=== PATIENT | male | born 1950 | race Caucasian/White ===

== ENCOUNTER 2019-06-20 09:07 | Observation (INO) | payer OTHER, SELFPAY ==
[2019-06-20] VITALS (16 sets, daily range): BP systolic 135–159; BP diastolic 83–117; PULSE 67–143; RESP 16–25; TEMP 36.4–36.6; O2SAT 98–100; BMI 28.7; BMI 28.3
--- NOTE | 2019-06-20 09:15 | RAD_ITS ---
STUDY: X-RAY CHEST REASON FOR EXAM: Male, 69 years old. CHEST PAIN STARTED THIS MORNING. TECHNIQUE: Single AP portable view of the chest. COMPARISON: None. FINDINGS: EKG electrodes are seen. The lungs are clear and expanded. Scattered calcified granulomas. There is no demonstrated pleural abnormality. Normal size heart. Normal mediastinum and olvin. Normal visualized pulmonary arteries. There is atherosclerotic calcification of the aortic arch with tortuosity. There are degenerative changes of the visualized thoracic spine. Normal visualized ribs, clavicles, and shoulders. There is no demonstrated abnormality of the visualized soft tissue structures of the upper abdomen. RAD/Chest 1 View (Portable) IMPRESSION: The lungs are clear. Electronically Signed: Lawrence Marks, at 9:35 EST , Service support ,
--- NOTE | 2019-06-20 09:15 | EKG12_ITS ---
Test Reason : CP Blood Pressure : / mmHG Vent. Rate : 127 BPM Atrial Rate : 357 BPM P-R Int : 000 ms QRS Dur : 072 ms QT Int : 312 ms P-R-T Axes : 000 044 029 degrees QTc Int : 453 ms Atrial fibrillation with rapid ventricular response with premature ventricular or aberrantly conducte d complexes Abnormal ECG Confirmed by AURELIA RIZO, ALEX ([id number]), editor school photograph RICHARD NORTH ([id number]) on 06/23/2019 3:21:27 PM Referred By: JOSHUA Confirmed By:ALEX MOSES MD
--- NOTE | 2019-06-20 09:23 | ED.VISSUMM ---
- ER Visit Summary Date of Service: 06/20/19 Chief Complaint: Chest pain History of Present Illness: The patient is a 69 M past medical history of some depression. No other significant medical problems or surgeries. Patient states in the last year he has had for 5 episodes of squeezing chest pain. Again had it this morning. Midsternal without radiation. Sitting normally can drink some water it resolves it did not today. Said often it will occur in the morning. He denies exertional chest pain but said he has had exertional dyspnea and exertional fatigue. He is never had a DVT or PE. No leg pain or swelling. No hemoptysis. He is never had a cardiac work-up and has not been hospitalized for a very long period of time. Physical Examination: Older male no acute distress. Vital signs are stable. H EENT exam unremarkable. Neck nontender. Lungs clear to auscultation bilaterally. Heart tachycardic rate about 127 appears to be irregular with PVCs. Abdomen soft and nontender. Normal bowel sounds no peritoneal signs. He is moving all 4 extremities. Calves are nontender without edema or cords. Equal symmetrical radial pulses. 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 Normal dorsi plantarflexion. Both upper and lower extremities have normal motor strength and sensation. Neurologically is awake and alert with no focal motor or sensory deficits. No facial droop. Normal speech. Test Results: Portable 1 view read by myself and radiologist shows no acute abnormality. Normal cardiac silhouette. EKG sinus rhythm rate of 127 consistent with sinus tachycardia with PVCs. The computer is reading there is a fair there is clear P waves throughout most of the EKG. There is an area where the P waves seem to drop off in lead V3. 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 CBC normal. White count of 6. Hemoglobin 16. Chemistries unremarkable BUN of 11 creatinine 1.2. Troponin normal. Emergency Department Course and Treatment: Patient with intermittent chest pain for a year. Chest pain this morning. Undergo a cardiac work up. Given p.o. aspirin. Treatment Plan: Exam patient is doing well. Symptom-free. He and I discussed his exertional fatigue and dyspnea times in the last several months. And need for further evaluation and admission. I also spoke to the hospitalist about admission Disposition: Admission Impression: Acute chest pain uncertain etiology. This note was generated with Dragon dictation software. It may contain incorrect words, spelling, and punctuation that were not noted in review of the chart prior to signing ED Disposition - Plan for ED Patient: Referrals: Franklyn Lew MD [Primary Care Provider] -
--- NOTE | 2019-06-20 09:29 | NURSING ---
NO OLD EKGS
[2019-06-20 09:38] LABS: Absolute Lymphocyte Count 1.23 X10^3/uL (0.83-4.51); Absolute Neutrophil Count 4.4 X10^3/uL (2.0-7.7); Basophil# 0.02 X10^3/uL; Basophil% 0.3 % (0-1); Eosinophil# 0.09 X10^3/uL; Eosinophils% 1.4 % (0-5); Hematocrit 48.1 % (40-54); Hemoglobin 16.3 g/dL (13.0-16.5); Lymphocyte # 1.23 X10^3/ul (4.0); Mean Corp Hgb Conc 33.9 g/dL (32-36); Mean Corpuscular Hgb 33.2 pg (27.0-32.0); Mean Platelet Vol. 10.1 fl (6.2-12.0); Monocyte# 0.74 X10^3/uL; Monocyte% 11.4 % (0-10); NRBC Flagged by Analyzer 0 % (0-5); Neutrophil # 4.39 X10^3/uL (2.7-7.7); Neutrophil % 67.6 % (47-70); Platelet Count 226 K/mm3 (150-450); RBC Distribution Width CV 12.4 % (11.6-14.6); RBC Distribution Width SD 44.7 fl (35.1-43.9); Red Blood Count 4.91 M/mm3 (4.6-6.2); White Blood Count 6.5 K/mm3 (4.4-11.0)
[2019-06-20 09:49] LABS: Anion Gap 7 (5-15); BUN 11 mg/dL (7-18); BUN/Creat Ratio 9.1 RATIO (10-20); Calcium,Total 9.5 mg/dL (8.5-10.1); Chloride 104 mmol/L (98-107); Creatinine, Serum 1.21 mg/dL (0.70-1.30); EST Glomerular Filtration Rate 63 mL/min (>60); Est Glom Filt Rate - Afr Amer 77 mL/min (>60); Estimated Creatinine Clearance 60.33 ml/min; Glucose 120 mg/dL (74-106); Potassium 4.1 mmol/L (3.5-5.1); Sodium Level 137 mmol/L (136-145)
[2019-06-20] MEDS: Aspirin 325 MG Tablet PO (10:22)
--- NOTE | 2019-06-20 10:30 | HP.PCM_ITS ---
History of Present Illness Date of Admission: 06/20/19 Chief Complaint: chest pain The patient is a 69 year old M with a past medical history significant for depression. He was admitted through the ED on 06/20/2019 with a complaint of chest pain. Chest pain has been going on episodically for about a year and he states it is retrosternal, cramping in nature with no aggravating or relieving factors. He initially thought it was due to reflux and said he used to be relieved by drinking water. However on waking up this morning he had similar chest pain which was not relieved by drinking water at this time. He also had associated dizziness and numbness in his left upper extremity. He denied any fever or chills, and admitted to occasional palpitations, he also admitted to nausea but no vomiting. He denied any abdominal pain or diarrhea. He therefore decided to come into the ED to be checked out. Patient states when he has routine health screenings at work, he is usually noted to have an elevated blood pressure but when he follows up with his PCP, his blood pressure is usually normal so he has not been on any blood pressure medications. He has a brother who has A. fib which was treated with ablation. On admission in the ED, vitals were significant for blood pressure 159/103 per pulse rate was 95 and respiratory was 18. Temperature was 97.8. He was saturating at 99% on 2 L of oxygen. Chemistry was essentially unremarkable initial troponin was negative. CBC was also unremarkable. Chest x-ray showed no acute cardiopulmonary process. EKG done in the ED was read as A. fib with RVR as heart rate was around 127. However, ED doctor felt that there was some P waves present. I reviewed EKG myself and also show some questionable P waves. He has been admitted to be managed for chest pain rule out ACS. During review however he was noted to be in A. fib and he also be managed for new onset A. fib. [] Past Medical History Allergies No Known Allergies Allergy (Verified 06/20/19 09:08) Home Medications: Ambulatory Orders Medication Instructions Recorded Fluoxetine [Prozac] 20 mg PO DAILY 06/20/19 Surgical History: - - foot surgery 40 years ago Psychiatric History: Depression Lives: Alone Smoking Status: Never smoker Alcohol: Heavy - drinks one bottle of wine daily Drugs: None - *Family History Maternal History Items: Heart Disease, - - alzheimer's disease Paternal History Items: No pertinent history Sibling History Items: Heart Disease - brother has Afib Review of Systems Constitutional: Denies: Chills, Fever, Night Sweats, Weight Change Eyes: Denies: Blurred vision HEENT: Denies: Head Aches, Sinus Congestion, Sinus Drainage Cardiovascular: Reports: Chest Pain, Chest Pressure, Light Headedness, Palpitations. Denies: Chest Tightness, Edema, Heaviness, Orthopnea, Paroxysmal Noc. Dyspnea, Syncope Respiratory: Reports: Shortness of Breath, Shortness of breath upon exertion. Denies: Cough, Shortness of breath at rest, Sputum production Gastrointestinal: Denies: Abdominal Pain, Nausea, Vomiting Genitourinary: Denies: Dysuria Musculoskeletal: Denies: Joint Pain, Joint Tenderness Skin: Denies: Rash, Wounds Neurological: Denies: Numbness, Tingling, Focal weakness Psychiatric: Denies: Anxiety, Depression, Homicidal Ideations, Suicidal Ideations Hematologic/ Lymphatic: Denies: Easy Bruising, Easy Bleeding VTE Information - Inpt Only VTE Present on Admission: No VTE Pharm Prophylaxis ordered?: Yes - Physical Exam Vitals/I&O's: Vital Signs Temp Pulse Resp BP Pulse Ox 97.5 F L 101 H 17 135/83 H 99 06/20/19 09:08 06/20/19 10:27 06/20/19 10:27 06/20/19 10:27 06/20/19 10:27 Oxygen Flow Rate (L/min) 2 Oxygen Delivery Method Nasal Cannula Weight: 200 lb Body Mass Index (BMI) 28.7 General: Alert, Oriented x3, Cooperative, No apparent distress HEENT: Atraumatic, PERRLA, EOMI, Normocephalic Oral: Moist Mucosa Neck: Supple, No JVD, Negative Carotid Bruits Lungs: Clear to auscultation, Normal air movement, No rhonchi, No wheeze, No rales Cardiovascular: Normal S1, Normal S2, No murmurs, Irregular Rate - afib, rate controlled Abdomen: Bowel Sounds Present, Soft, Non Tender Extremities: No clubbing, No cyanosis, No edema, Capillary Refill Less than 3 Seconds Skin: No rashes, No breakdown Musculoskeletal: No Tenderness to Palpation of Joints or Extremities Lymphatic: No Cervical, Supraclavicular, or Inguinal Adenopathy Neurological: Cranial nerves II-XII grossly intact, Neuro grossly intact, Motor Exam 5/5 strength throughout Psych/Mental Status: Normal Affect, Appropriate, Alert and oriented to time, place, person, mood and affect Laboratory Results 06/20/19 09:20: WBC 6.5, RBC 4.91, Hgb 16.3, Hct 48.1, MCV 98.0 H, MCH 33.2 H, MCHC 33.9, RDW Std Deviation 44.7 H, RDW Coeff of Ankit 12.4, Plt Count 226, MPV 10.1, Immature Gran % (Auto) 0.300, Neut % (Auto) 67.6, Lymph % (Auto) 19.0, [place] % (Auto) 11.4 H, Eos % (Auto) 1.4, Baso % (Auto) 0.3, Absolute Neuts (auto) 4.4, Absolute Lymphs (auto) 1.23, Nucleated RBC % 0 06/20/19 09:20: Sodium 137, Potassium 4.1, Chloride 104, Carbon Dioxide 26.0, Anion Gap 7, BUN 11, Creatinine 1.21, Estim Creat Clear Calc 60.33, Est GFR (MDRD) Af Amer 77, Est GFR (MDRD) Non-Af 63, BUN/Creatinine Ratio 9.1 L, Glucose 120 H, Calcium 9.5, Troponin I < 0.015 Diagnostic Data Chest X-Ray 06/20/19 09:15 IMPRESSION: The lungs are clear. Electronically Signed: Lawrence Selina, at 9:35 EST , Service support , Assessment/Plan 69-year-old male admitted with a complaint of chest pain and found to be in A. fib. 1. Chest pain to r/o ACS * admit to PCU with telemetry * cycle troponins * SL nitroglycerin prn; PO aspirin 81mg daily * for stress test if troponins are negative. * check lipid panel and A1C * 2D echo * 2. Afib * is of new onset. Does have occasional palpitations which he dismissed. Brother has Afib which required ablation * will check TSH * start on PO metoprolol 25mg bid * currently rate controlled * start lovenox sq 90mg bid; if stress test comes back negative, can be started on PO eliquis * counseled to stop drinking, due to effect of alcohol on Afib * 3. Hypertension * not on any meds. BP is 159/103. * has been started on PO metoprolol for afib, which should help with hypertension * IV metoprolol prn * 4. Depression: on Prozac DVT prophylaxis: on therapeutic lovenox Code Visit Inpatient E&M: [id number] Init Hosp L3
--- NOTE | 2019-06-20 11:20 | ECHOCS_ITS ---
Reason For Study: AFIB Procedure This was a 2D Doppler, Color Flow transthoracic echocardiogram. The study was technically difficult. Contrast injection was performed. Exam performed portable in patient room. Left Ventricle Normal LV size. Left ventricular systolic function is normal. The estimated ejection fraction is 55 %. Unable to assess diastolic dysfunction. No regional wall motion abnormalities noted. Right Ventricle Normal RV size. Normal systolic function. Atria Borderline to mildly enlarged left atrium. Normal right atrium. No doppler evidence for ASD. Mitral Valve There is no mitral annular calcification. Normal mitral valve. Mild (1+) eccentric mitral valve insufficiency. Tricuspid Valve Normal tricuspid valve. Mild tricuspid valve insufficiency. Right ventricular systolic pressure estimated to be 22 mmHg. Aortic Valve Trisinus/trileaflet aortic valve. Mild focal aortic valve thickening. Pulmonic Valve The pulmonic valve is not well visualized. Trivial pulmonic valve insufficiency. Great Vessels Normal sized aortic root. Pericardium/Pleural No pericardial effusion. MMode/2D Measurements & Calculations LVIDd: 4.1 cm IVSd: 1.0 cm Ao root diam: 3.8 cm LVIDs: 2.9 cm LVPWd: 1.2 cm RVDd: 4.0 cm FS: 29.0 % LAV(MOD-bp): 45.9 ml LVAd ap4: 26.7 cm2 SV(MOD-sp4): 37.6 ml LAV(MOD-bp) Indexed: 22.1 ml/m2 EDV(MOD-sp4): 79.6 ml LAV(MOD-sp2): 47.6 ml EDV(sp4-el): 85.1 ml LAV(MOD-sp4): 42.0 ml LVAs ap4: 17.5 cm2 ESV(MOD-sp4): 42.1 ml ESV(sp4-el): 42.8 ml EF(MOD-sp4): 47.2 % EF(sp4-el): 49.8 % SV(sp4-el): 42.4 ml LA A4 area: 17.2 cm2 LA dimension(2D): 4.1 cm RA A4 area: 14.6 cm2 Doppler Measurements & Calculations Ao V2 max: 102.2 cm/sec LV V1 max: 78.6 cm/sec PA V2 max: 67.2 cm/sec Ao max P.2 mmHg LV V1 max P.5 mmHg TR max christie: 218.8 cm/sec TR max P.2 mmHg Interpretation Summary The study was technically difficult. Contrast injection was performed. Left ventricular systolic function is normal. The estimated ejection fraction is 55 %. Borderline to mildly enlarged left atrium. Mild (1+) eccentric mitral valve insufficiency. Mild tricuspid valve insufficiency. Mild focal aortic valve thickening. Trivial pulmonic valve insufficiency. Right ventricular systolic pressure estimated to be 22 mmHg. Unable to assess diastolic dysfunction. Ordering Physician: Janice Phillips Referring Physician: MORTEZA IRVING Performed By: Raissa Austin, JUS, RVT
--- NOTE | 2019-06-20 11:20 | EKG12_ITS ---
Test Reason : CP ADMISSION Blood Pressure : / mmHG Vent. Rate : 128 BPM Atrial Rate : 293 BPM P-R Int : 000 ms QRS Dur : 078 ms QT Int : 314 ms P-R-T Axes : 000 036 014 degrees QTc Int : 458 ms Atrial flutter with variable A-V block with premature ventricular or aberrantly conducted complexes Abnormal ECG When compared with ECG of 20-JUN-2019 11:33, MANUAL COMPARISON REQUIRED, DATA IS UNCONFIRMED Confirmed by MARIELLE RIZO, BRIDGETT ([id number]), editorial writer CHE GALLEGOS ([id number]) on 06/24/2019 8:54:57 AM Referred By: PRAMOD Confirmed By:BRIDGETT PALOMARES MD
[2019-06-20] MEDS: dilTIAZem 25 MG/5 ML Vial IV BOLUS (12:16)
[2019-06-20] MEDS: 0.9% Saline Lock 10 ML Syringe IV (12:16)
[2019-06-20 12:28] LABS: Cholesterol 259 mg/dL (200); High Density Lipoprotein 77 mg/dL; Thyroid Stim Hormone (TSH) 3.02 uIU/mL (0.358-3.74); Triglycerides 123 mg/dL; Very Low Density Lipoprotein 25 mg/dL (5-40)
[2019-06-20 12:57] LABS: Hemoglobin A1c 5.2 % (4.2-6.3)
[2019-06-20] MEDS: Metoprolol Tartrate 25 MG Tablet PO ×2 (13:33→21:26)
--- NOTE | 2019-06-20 13:54 | CASEMGMT ---
SW reviewed chart, spoke w/pt in room in regard to alcohol use. Pt states that he is here alone, family is in [place]. He states is not involved in a lot, not a taoism goer, and is isolated. Pt has lived here for 12 years, moved here for work. Pt states works at the [employer]. He plans to move to [place] at some point. Pt states that the drinking he thinks is due to isolation. Pt states that he has not had the shakiness when not drinking however, does not think he has had physiological effects from it. He is concerned about its effect on his health however. Pt is not interested in any resources at this time for alcohol cessation. SW did make pt aware of some programs in the area, should he decide he would like counseling in the future. Pt thanked GEORGI for the information. No further needs at this time. MAXWELL Beltre
[2019-06-20] MEDS: Atorvastatin Calcium 40 MG Tablet PO (21:26)
[2019-06-20] MEDS: Enoxaparin 100 MG/ML Syringe 90 MG SC (21:27)
[2019-06-21] VITALS (7 sets, daily range): BP systolic 127–142; BP diastolic 82–89; PULSE 62–101; RESP 14–16; TEMP 36.4–36.6; O2SAT 98–99
--- NOTE | 2019-06-21 05:55 | EKG12_ITS ---
Test Reason : AM EKG Blood Pressure : / mmHG Vent. Rate : 080 BPM Atrial Rate : 208 BPM P-R Int : 000 ms QRS Dur : 092 ms QT Int : 378 ms P-R-T Axes : 000 052 026 degrees QTc Int : 435 ms Atrial fibrillation Abnormal ECG When compared with ECG of 20-JUN-2019 11:33, MANUAL COMPARISON REQUIRED, DATA IS UNCONFIRMED Confirmed by MARIELLE RIZO, BRIDGETT ([id number]), restaurant expeditor CHE GALLEGOS ([id number]) on 06/24/2019 8:40:14 AM Referred By: DR BENAVIDEZ Confirmed By:BRIDGETT PALOMARES MD
[2019-06-21 06:03] LABS: Absolute Lymphocyte Count 1.42 X10^3/uL (0.83-4.51); Absolute Neutrophil Count 3.2 X10^3/uL (2.0-7.7); Basophil# 0.02 X10^3/uL; Basophil% 0.4 % (0-1); Eosinophil# 0.18 X10^3/uL; Eosinophils% 3.2 % (0-5); Hematocrit 42.5 % (40-54); Hemoglobin 14.7 g/dL (13.0-16.5); Lymphocyte # 1.42 X10^3/ul (4.0); Lymphocyte % 25.5 % (19-41); Mean Corp Hgb Conc 34.6 g/dL (32-36); Mean Corpuscular Hgb 33.4 pg (27.0-32.0); Mean Corpuscular Volume 96.6 fL (80-94); Mean Platelet Vol. 10.6 fl (6.2-12.0); Monocyte# 0.78 X10^3/uL; NRBC Flagged by Analyzer 0 % (0-5); Neutrophil # 3.16 X10^3/uL (2.7-7.7); Neutrophil % 56.7 % (47-70); Platelet Count 174 K/mm3 (150-450); RBC Distribution Width CV 12.1 % (11.6-14.6); White Blood Count 5.6 K/mm3 (4.4-11.0)
[2019-06-21] MEDS: Aspirin E.C. 81 MG Tablet PO (06:24)
[2019-06-21] MEDS: 0.9% Saline Lock 10 ML Syringe IV (06:28)
[2019-06-21 06:30] LABS: Anion Gap 4 (5-15); BUN 13 mg/dL (7-18); BUN/Creat Ratio 16.2 RATIO (10-20); Calcium,Total 8.8 mg/dL (8.5-10.1); Chloride 106 mmol/L (98-107); EST Glomerular Filtration Rate 102 mL/min (>60); Est Glom Filt Rate - Afr Amer 123 mL/min (>60); Estimated Creatinine Clearance 91.25 ml/min; Glucose 88 mg/dL (74-106); Potassium 4.1 mmol/L (3.5-5.1); Sodium Level 138 mmol/L (136-145)
[2019-06-21] MEDS: FLUoxetine 20 MG Capsule PO (12:10)
[2019-06-21] MEDS: Metoprolol Tartrate 25 MG Tablet PO (12:10)
--- NOTE | 2019-06-21 12:37 | STRESSREP ---
Stress Test Report Date: 06-21-2019 Procedure: Pharmacologic stress nuclear imaging study Indications: Atrial fibrillation Consent: Per the patient Procedure: The patient underwent pharmacologic (Regadenoson) evaluation with a peak heart rate of 89 beats per minute (58 %predicted maximal heart rate) and a peak blood pressure of 132/80 mmHg. The baseline ECG demonstrated sinus rhythm. The peak pharmacologic ECG demonstrated no obvious ECG changes. There was a isolated PVC during infusion and an occasional PVC during recovery. There was no complaint of chest discomfort during pharmacologic infusion or recovery. The examination was discontinued secondary to completion of protocol. Impression: 1. Pharmacologic (Regadenoson) evaluation 2. Peak pharmacologic ECG with no obvious ECG changes. 3. There was an isolated PVC during infusion and an occasional PVC during recovery. 4. Nuclear images pending Myocardial perfusion imaging study: Technique: The patient was injected with 12.0 millicuries of technetium 99m Cardiolite and subsequently rest SPECT Cardiolite nuclear imaging was obtained in the horizontal long, vertical long, and short axis views. The patient underwent pharmacologic (Regadenoson) evaluation with a peak heart rate of 89 beats per minute (58 % percent predicted maximal heart rate) and a peak blood pressure of 132/80 mmHg. The patient was injected with 36.0 millicuries of technetium 99m Cardiolite and subsequently stress SPECT Cardiolite nuclear imaging was obtained in the horizontal long, vertical long, and short axis views. A gated Cardiolite study at peak stress was obtained. Interpretation: Rest and stress SPECT Cardiolite nuclear imaging status post realignment, normalization, and attenuation correction demonstrate relative uniform tracer uptake and myocardial perfusion appearing within normal limits. There is end systolic thickening and brightening. The gated Cardiolite study demonstrates myocardial thickening and inward wall motion. The reported LVEF is 65 %. Impression: 1. Rest and stress SPECT Cardiolite nuclear imaging demonstrate relative uniform tracer uptake and myocardial perfusion appearing within normal limits. 2. The gated Cardiolite study reports an LVEF of 65 %. This note was generated with SensorTranation software. It may contain incorrect words, spelling, and punctuation that were not noted in checking the note before signing.
--- NOTE | 2019-06-21 13:35 | DCINST_ITS ---
You will use the following diet at home:: Cardiac Discharge Activity: Return to Normal Activity Call your doctor if you observe: Shortness of breath, Dizziness, Fainting spells, Chest pain Allergies/Adverse Reactions: Allergies No Known Allergies Allergy (Verified 06/20/19 09:08) Medications to take at Discharge Fluoxetine [Prozac] 20 mg PO DAILY 06/20/19 Apixaban [Eliquis] 5 mg PO BID #60 tab 06/21/19 Atorvastatin Calcium 10 mg PO QHS #30 tab 06/21/19 Metoprolol Tartrate [Lopressor (beta domenica)] 25 mg PO BID #60 tab 06/21/19 The following prescriptions were given: Atorvastatin Calcium 10 mg PO QHS #30 tab Transmission Status: Pending to [facility]30 Apixaban [Eliquis] 5 mg PO BID #60 tab Transmission Status: Pending to [facility] #30 Metoprolol Tartrate [Lopressor (beta domenica)] 25 mg PO BID #60 tab Transmission Status: Pending to [facility] #30 Primary Care Physician: Franklyn Lew MD [Primary Care Provider] - Please follow up with your Primary Care Physician in: 1 Week Test Results: Test results from this visit will be discussed in further detail at your follow- up appointment, if applicable. Please Follow Up With: [facility] - [phone] When: Call sunday for follow up in 1-2 Weeks Proposed Discharge Date: 06/21/19
--- NOTE | 2019-06-21 13:41 | DS.PCM_ITS ---
<Selma Ingram - Last Filed: 06/21/19 14:07> Discharge Date and Diagnosis Date of Admission: 06/20/19 Date of Discharge: 06/21/19 - Primary Discharge Diagnosis 1. New onset atrial fibrillation 2. Chest pain, ACS ruled out 3. Hypertension 4. Hyperlipidemia 5. Depression Hospital Course and Treatment Imaging Results: Diagnostic Data Chest X-Ray 06/20/19 09:15 IMPRESSION: The lungs are clear. Electronically Signed: Lawrence Marks, at 9:35 EST , Service support , Operations: None Procedures: 2-D Echocardiogram, Stress test Summary of Care Provided: The patient is a 69 year old M admitted 06/20/2019 due to chest pain. 1. New onset atrial fibrillation-patient reports fluttering intermittently for the past few years however not as persistent as presenting symptoms. He also reports a brother who has A. fib which required ablation. Troponin negative. TSH normal. Echocardiogram demonstrated an EF of 55%, mild mitral valve insufficiency, mild tricuspid valve insufficiency. Patient underwent nuclear stress test which was negative for ischemia. Rate controlled, continue metoprolol 25 mg p.o. twice daily. Placed on Eliquis 5 mg p.o. twice daily. Follow-up with [facility] in 1 to 2 weeks as outpatient. 2. Chest pain, ACS ruled out-stress test negative for ischemia as noted above. 3. Hypertension-new diagnosis, improved on metoprolol regimen. 4. Hyperlipidemia-lipid profile mildly elevated. Atorvastatin 10 mg p.o. nightly. Recommend repeat lipid profile by primary care provider. 5. Depression-continue fluoxetine regimen. Patient seen and examined prior to discharge. Physical assessment as noted below. Patient is stable for discharge with follow up recommendations as noted above. This patient was seen by JC Pruitt under the supervision of Dr. Clark. - Physical Exam Vitals/I&O's: Vital Signs Temp Pulse Resp BP Pulse Ox 97.6 F L 62 14 136/82 H 99 06/21/19 12:08 06/21/19 12:10 06/21/19 12:08 06/21/19 12:08 06/21/19 12:08 Oxygen Flow Rate (L/min) 2 Oxygen Delivery Method Room Air Weight: 197 lb 8.547 oz Body Mass Index (BMI) 28.3 Intake and Output for Last 24 Hours 06/19/19 06/20/19 06/21/19 23:59 23:59 23:59 Intake Total 600 / 600 240 / 240 Balance 600 / 600 240 / 240 General: Alert, Oriented x3, Cooperative HEENT: Atraumatic, PERRLA, EOMI, Normocephalic Neck: Supple, No JVD, Negative Carotid Bruits Lungs: Clear to auscultation, Normal air movement Cardiovascular: - - a.fib, rate controlled Abdomen: Bowel Sounds Present, Soft, Non Tender, Non-Distended Extremities: No clubbing, No cyanosis, No edema, Capillary Refill Less than 3 Seconds Skin: No rashes, No breakdown Musculoskeletal: No Tenderness to Palpation of Joints or Extremities Neurological: Cranial nerves II-XII grossly intact, Neuro grossly intact Psych/Mental Status: Normal Affect, Appropriate Laboratory Results 06/20/19 12:25: Troponin I < 0.015 06/20/19 15:12: Troponin I < 0.015 06/21/19 05:37: WBC 5.6, RBC 4.40 L, Hgb 14.7, Hct 42.5, MCV 96.6 H, MCH 33.4 H, MCHC 34.6, RDW Std Deviation 43.0, RDW Coeff of Ankit 12.1, Plt Count 174, MPV 10.6, Immature Gran % (Auto) 0.200, Neut % (Auto) 56.7, Lymph % (Auto) 25.5, Burt % (Auto) 14.0 H, Eos % (Auto) 3.2, Baso % (Auto) 0.4, Absolute Neuts (auto) 3.2, Absolute Lymphs (auto) 1.42, Nucleated RBC % 0 06/21/19 05:37: Sodium 138, Potassium 4.1, Chloride 106, Carbon Dioxide 28.0, Anion Gap 4 L, BUN 13, Creatinine 0.80, Estim Creat Clear Calc 91.25, Est GFR (MDRD) Af Amer 123, Est GFR (MDRD) Non-Af 102, BUN/Creatinine Ratio 16.2, Glucose 88, Calcium 8.8 Current Medications Aspirin (Ecotrin) 81 mg PO DAILY@0800 [facility] Last Admin: 06/21/19 06:24 Dose: 81 mg Documented by: Atorvastatin Calcium (Lipitor) 40 mg PO QHS [facility] Last Admin: 06/20/19 21:26 Dose: 40 mg Documented by: Enoxaparin Sodium (Lovenox) 90 mg 1 mg/kg (90 mg) SC Q12 [facility] Last Admin: 06/21/19 09:30 Dose: Not Given Documented by: Fluoxetine HCl (Prozac) 20 mg PO DAILY [facility] Last Admin: 06/21/19 12:10 Dose: 20 mg Documented by: Glucagon () 1 mg IM .X1 PRN PRN Reason: Hypoglycemia Dextrose (Dextrose 10%-Water) 250 mls @ 999 mls/hr IV .Q16M PRN; Protocol PRN Reason: HYPOGLYCEMIA Metoprolol Tartrate (Lopressor (Beta Ambreen)) 25 mg PO BID [facility] Last Admin: 06/21/19 12:10 Dose: 25 mg Documented by: Nitroglycerin (Nitrostat) 0.4 mg SUBLINGUAL Q5M PRN PRN Reason: CARDIAC/CHEST PAIN Ondansetron HCl (Zofran) 4 mg IV Q8H PRN PRN PRN Reason: NAUSEA/VOMITING Sodium Chloride () 10 - 40 ml IV UD PRN PRN Reason: SALINE FLUSH Last Admin: 06/21/19 06:28 Dose: 10 ml Documented by: Discharge Diet: No Restrictions Discharge Activity: Return to Normal Activity Call your doctor if you observe: Shortness of breath, Dizziness, Fainting spells, Chest pain Home Medications: Medications to take at Discharge Fluoxetine [Prozac] 20 mg PO DAILY 06/20/19 Apixaban [Eliquis] 5 mg PO BID #60 tab 06/21/19 Atorvastatin Calcium 10 mg PO QHS #30 tab 06/21/19 Metoprolol Tartrate [Lopressor (beta ambreen)] 25 mg PO BID #60 tab 06/21/19 Following Prescrptions Were Given to Patient: Atorvastatin Calcium 10 mg PO QHS #30 tab Transmission Status: Received by [facility] Apixaban [Eliquis] 5 mg PO BID #60 tab Transmission Status: Received by [facility] Metoprolol Tartrate [Lopressor (beta ambreen)] 25 mg PO BID #60 tab Transmission Status: Received by [facility] Primary Care Physician: Franklyn Lew MD [Primary Care Provider] - Please follow up with your Primary Care Physician in: 1 Week Please Follow Up With: [facility] - [phone] When: Call sunday for follow up in 1-2 Weeks Disposition: Home Minutes spent on discharge:: 35 Patient Condition:: Stable Medical Necessity - Tobacco Use Smoking Status: Never smoker Meaningful Use Info Meaningful Use Diagnoses (Choose all that apply): None applicable <Sonny Clark F - Last Filed: 06/21/19 15:20> Hospital Course and Treatment Imaging Results: 06/21/19 08:00 Nuclear Stress Test - Chemical [NM] Routine Summary of Care Provided: The patient is a 69 year old M [] - Physical Exam Vitals/I&O's: Vital Signs Temp Pulse Resp BP Pulse Ox 97.8 F 68 16 129/89 H 98 06/21/19 13:51 06/21/19 13:51 06/21/19 13:51 06/21/19 13:51 06/21/19 13:51 Oxygen Flow Rate (L/min) 2 Oxygen Delivery Method Room Air Weight: 197 lb 8.547 oz Body Mass Index (BMI) 28.3 Intake and Output for Last 24 Hours 06/19/19 06/20/19 06/21/19 23:59 23:59 23:59 Intake Total 600 / 600 240 / 240 Balance 600 / 600 240 / 240 Laboratory Results 06/20/19 15:12: Troponin I < 0.015 06/21/19 05:37: WBC 5.6, RBC 4.40 L, Hgb 14.7, Hct 42.5, MCV 96.6 H, MCH 33.4 H, MCHC 34.6, RDW Std Deviation 43.0, RDW Coeff of Ankit 12.1, Plt Count 174, MPV 10.6, Immature Gran % (Auto) 0.200, Neut % (Auto) 56.7, Lymph % (Auto) 25.5, Burt % (Auto) 14.0 H, Eos % (Auto) 3.2, Baso % (Auto) 0.4, Absolute Neuts (auto) 3.2, Absolute Lymphs (auto) 1.42, Nucleated RBC % 0 06/21/19 05:37: Sodium 138, Potassium 4.1, Chloride 106, Carbon Dioxide 28.0, Anion Gap 4 L, BUN 13, Creatinine 0.80, Estim Creat Clear Calc 91.25, Est GFR (MDRD) Af Amer 123, Est GFR (MDRD) Non-Af 102, BUN/Creatinine Ratio 16.2, Glucose 88, Calcium 8.8 Code Visit Addendum: Dr. Clark I personally examined the patient and reviewed the chart. I agree with the above. 69-year-old male presents with chest pain that started about a year prior. He states that it was episodic. He does have a history of depression is on Prozac. Initial troponins were negative and an echo was unremarkable. He had a stress test this morning which was also normal. There was some evidence of a new onset A. fib though he was not in RVR. He was started on Eliquis and discharged with follow-up with cardiology as well as his primary care doctor. This was discussed with him including the risks and benefits of going home and he expressed understanding to the plan. OBSV E&M: 43789 Observation care discharge
--- NOTE | 2019-06-21 14:02 | CM.UR ---
Called [facility] at this time. Lu is $150 under his prescription coverage. Will give patient a discount card for $10 copay. Gabrielle Chinchilla RN, CCM.
== END 2019-06-21 13:39 | disposition home or self-care (01) ==
LOC: ED 09:47 → PCU 10:49
PROVIDERS: Admitting Provider Student in an Organized Health Care Education/Training Program; Emergency Provider Emergency Medicine; PCP Family Medicine; Visit Provider Family Medicine
DX: I48.91 Unspecified atrial fibrillation (principal); R07.89 Other chest pain; F32.9 Major depressive disorder, single episode, unspecified; F41.9 Anxiety disorder, unspecified; R20.0 Anesthesia of skin; I10 Essential (primary) hypertension; E78.5 Hyperlipidemia, unspecified; Z79.899 Other long term (current) drug therapy; R94.31 Abnormal electrocardiogram [ECG] [EKG]; I08.1 Rheumatic disorders of both mitral and tricuspid valves
CPT/HCPCS: 36415; 71045; 78452; 80048; 80061; 83036; 84443; 84484; 85025; 93005; 93017; 93306; 96372; 96374; 99218; 99285; A9500; Q9957; A4216; C8929; G0378; J2785

== ENCOUNTER 2020-11-30 14:07 | Emergency (ER) | payer MEDICARE, OTHER, SELFPAY ==
[2020-01-12 10:49] VITALS: BMI 28.8
[2020-11-30 14:09] VITALS: BP 130/79; PULSE 64; RESP 19; TEMP 36.6; O2SAT 98; BMI 30.2
--- NOTE | 2020-11-30 14:33 | RAD_ITS ---
STUDY: X-RAY - LEFT SHOULDER REASON FOR EXAM: Male, 70 years old. Fall and pain TECHNIQUE: 4 view(s) of the shoulder. COMPARISON: None. FINDINGS: Normal glenohumeral articulation. Normal acromioclavicular joint. I suspect an avulsion fracture along the undersurface of the acromion. Normal humeral head and visualized proximal humerus. The soft tissue structures are unremarkable. Normal visualized pulmonary apex. RAD/Shoulder min 2 Views IMPRESSION: I suspect an avulsion fracture along the undersurface of the acromion. Electronically Signed: Lawrence Marks MD at 15:21 EDT , Service support ,
--- NOTE | 2020-11-30 14:33 | RAD_ITS ---
STUDY: X-RAY - PELVIS REASON FOR EXAM: Male, 70 years old. Fall and pain right posteriorly TECHNIQUE: One view of the pelvis was obtained. COMPARISON: None. FINDINGS: There is a non-specific bowel gas pattern. Normal visualized soft tissue structures. Normal bilateral iliac wings, sacroiliac joints and visualized sacrum. Normal visualized bilateral superior and inferior pubic rami. There are degenerative changes of the pubic symphysis with articular narrowing and sclerosis. Normal ischial tuberosities. Normal visualized right femoral head. Normal right acetabulum. Normal right hip joint. Normal visualized left femoral head. Normal left acetabulum. Normal left hip joint. RAD/Pelvis 1 or 2 Views IMPRESSION: Degenerative changes of the symphysis pubis. Electronically Signed: Lawrence Marks MD at 15:20 EDT , Service support ,
--- NOTE | 2020-11-30 14:34 | ED.VIS.FALL ---
HPI HPI - Fall History of Present Illness Chief Complaint: Fall Informant: patient Occured/Mechanism Occurred: Today and Hours Fall down steps #: 10-12 steps Pain/Injury Location: left shoulder and right iliac crest Pain Location: back and upper extremity Quality of Pain: Sharp Current Severity: Mild Maximum Severity: Mild Associated Symptoms Associated Symptoms: Negative for Parasthesias, Weakness, Loss of function, Inability to ambulate, Loss of consciousness and Amnesia Narrative Narrative: 70-year-old male on Eliquis due to a history of a fib. Slipped going down his basement steps are carpeted. Went down about 10-12 steps. Denies hitting his head. No LOC. No neck pain. Complaining of pain in his left posterior shoulder and right posterior iliac crest region. Denies any spine pain. Denies any chest or abdominal pain. [place] fine prior to the fall. Prior similar symptoms: No Recent Illness/Hospitalization: No [facility] Medical History (Updated 11/30/20 @ 17:[address] Sergio Byrnes MD) Depression Essential hypertension Hyperlipidemia New onset atrial fibrillation Paroxysmal atrial fibrillation Home Medications fluoxetine 20 mg PO DAILY 06/20/19 [History Last Taken Unknown] multivitamin 1 tab PO QAM 07/02/19 [History Last Taken Unknown] atorvastatin 10 mg tablet 10 mg PO QHS #90 tab 07/13/20 [Rx Last Taken Unknown] apixaban 5 mg tablet 5 mg PO BID #180 tab 07/19/20 [Rx Last Taken Unknown] diltiazem HCl 120 mg capsule,extended release 24 hr 120 mg PO DAILY #90 cap 09/01/20 [Rx Last Taken Unknown] Allergy/AdvReac Type Severity Reaction Status Date / Time No Known Allergies Allergy Verified 11/30/20 14:12 Family History Brother Atrial fibrillation Father Atrial fibrillation Surgical History History of foot surgery Social History Smoking Status: Never smoker alcohol intake: current alcohol intake frequency: 3 or more drinks per day Alcohol type: wine substance use type: does not use caffeine: Yes Type: coffee Number of servings: 1 ROS ROS ED ROS Narrative Prior to the fall felt fine denies any recent illness. Review of Systems ROS Unobtainable: Denies due to encephalopathy Constitutional Constitutional ED: Denies chills or fever(s) Eyes Eyes: Denies change in vision ENT ENT ED: Denies ear pain or rhinorrhea Cardiovascular Cardiovascular: Denies chest pain or palpitations Respiratory/Chest Respiratory/Chest: Denies cough or dyspnea Gastrointestinal Gastrointestinal: Denies abdominal pain, diarrhea, nausea or vomiting Genitourinary Genitourinary ED: Denies dysuria or hematuria Musculoskeletal Musculoskeletal: Denies arthralgias, myalgias or neck pain Integumentary Denies abscess or rash Neurologic Neurologic: Denies headache(s) Psychiatric Psychiatric: Denies depression Endocrine Endocrinology: Denies polyuria Hematologic/Lymphatic Hematologic/Lymphatic: Denies easy bruising Allergic/Immunologic Allergic/Immunologic ED: Denies urticaria EXAM Physical Exam Narrative Exam Narrative: Older male no acute distress. Vital signs stable afebrile. H EENT exam normal atraumatic. Pupils round reactive light. No traumaor scalp. No hematoma or bruising. No tenderness. C-spine nontender full range of motion with neck. Lungs clear to auscultation bilaterally. Heart regular rhythm no murmur. Rate about 60. Chest wall nontender. Abdomen soft nontender. Pelvic girdle intact. There is no bruising on his chest or abdomen. No crepitance. Back the cervical, thoracic and lumbar spine are complete nontender. He has tenderness and abrasions to his left posterior shoulder and right iliac crest region. There is mild swelling. He has full range of motion of left shoulder and the right hip. Moving all 4 extremities. Nontender. No deformity. 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 Full flexion-extension of both wrists, elbows and shoulders. Full range of motion of both hips, knees and ankles. No shortening or rotation. Dorsi plantar flexion intact. Neurologically is awake alert with no focal motor deficits. GCS of 15. Const Vital Signs: 11/30/20 14:09 11/30/20 14:15 11/30/20 16:13 Temperature 97.9 F Temperature Source Oral Pulse Rate 64 64 Respiratory Rate 19 H 20 H Respiratory Effort Normal Non-Labored Respiratory Depth Normal Respiratory Pattern Normal Blood Pressure 130/79 H 145/84 H Blood Pressure Mean 96 104 Pulse Ox 98 98 Oxygen Delivery Method Room Air Room Air Room Air 11/30/20 17:19 Temperature Temperature Source Pulse Rate 64 Respiratory Rate 18 Respiratory Effort Respiratory Depth Respiratory Pattern Blood Pressure 152/81 H Blood Pressure Mean 104 Pulse Ox 99 Oxygen Delivery Method Room Air Positive well nourished and well developed General Appearance ED: well developed HEENT Reports normocephalic atraumatic; Negative for trauma, hematoma or tenderness Eyes PERRL and EOMs intact bilaterally Neck full ROM, no lymphadenopathy and supple General: Negative for tenderness Chest Wall inspection of chest normal and palpation of chest normal Resp normal respiratory effort, no retractions and clear to auscultation bilaterally Auscultation: Negative for rales, rhonchi or wheezes Cardio regular rate, regular rhythm, S1 normal heart sound, S2 normal heart sound and no murmurs GI non-tender, non-distended and no masses Inspection: Negative for abdominal distention Auscultation: normoactive bowel sounds Palpation: soft; Negative for guarding or rebound tenderness present Back/Spine no CVA tenderness Back/Spine Narrative: Tenderness mild swelling abrasion of the left posterior shoulder. However full range of motion of the shoulder. Positive tenderness mild swelling to the right posterior iliac crest. Spine completely nontender. Cervical Spine: Negative for cervical spine tenderness Thoracic Spine / Upper Back: Negative for thoracic spinal tenderness Lumbar Spine / Lower Back: Negative for lumbar spinal tenderness Extremity normal to inspection, full ROM, normal capillary refill, no joint enlargement, no clubbing, cyanosis or edema, no calf tenderness and no pedal edema Neuro oriented x3, CN's II-XII intact bilaterally, moves all extremities, no focal motor deficits and no sensory deficits noted [place] Coma Scale: document GCS findings Spontaneous Obeys Commands Oriented 15 Sensorium / Orientation: alert, oriented to person, oriented to place and oriented to time; Negative for orientation impaired, confused, lethargic or stuporous Motor Exam: strength 5/5 throughout; Negative for general weakness Psych mental status grossly normal and thought process normal Skin Lesions: no lesions Rashes: no rashes MDM MDM MDM Narrative Medical decision making narrative: 70-year-old male fell and slid down about 10-12 steps. No LOC. No head injury. Pain is left posterior shoulder and right iliac crest region. X-rays being obtained. He has no signs of trauma to his head I do not think he needs a CT of his brain at this time. Repeat exam patient is doing well at 5:40 PM. Except soft tissue swelling behind his left shoulder posteriorly and behind his right iliac crest. Consistent with bruising. Is full range of motion both of the right hip and left shoulder. I think the x-ray findings are seen on the left shoulder on the acromium is old. He states he has had problems that shoulder in the past. I do not think that is an acute avulsion because I think he hit the back of his shoulder and the mechanism would go along with an avulsion fracture. I did go over the x-rays with the patient. He is comfortable being discharged home. Lab Data Labs: Left shoulder x-ray showed an age-indeterminate of a possible avulsion fracture of the left acromium. I do not think this is acute. After speaking with the patient reexamining he is not tender over that point. Is all posteriorly. Pelvis x-ray is unremarkable 1 view interpreted by myself and the radiologist. Radiography Diagnostic Testing: Radiology Impression Pelvis X-Ray 11/30/20 14:33 IMPRESSION: Degenerative changes of the symphysis pubis. Electronically Signed: Lawrence Marks MD at 15:20 EDT , Service support , Shoulder X-Ray 11/30/20 14:33 IMPRESSION: I suspect an avulsion fracture along the undersurface of the acromion. Electronically Signed: Lawrence Marks MD at 15:21 EDT , Service support , Discharge Plan Triage Chief Complaint: Fall ED Provider: Sergio Byrnes Dx/Rx/DC Orders Clinical Impression: Contusion of left shoulder, Back contusion Instructions: ED Back Contusion, ED Shoulder Contusion Prescriptions: No Action multivitamin Tablet 1 tab PO QAM RF: 0 fluoxetine 20 MG capsule 20 mg PO DAILY RF: 0 atorvastatin 10 mg tablet 10 mg PO QHS Qty: 90 RF: 3 apixaban 5 mg tablet 5 mg PO BID Qty: 180 RF: 3 diltiazem HCl [Cardizem CD] 120 mg capsule,extended release 24hr 120 mg PO DAILY Qty: 90 RF: 3 Primary Care Provider: Franklyn Lew Referrals: Franklyn Lew MD [Primary Care Provider] - 1 Week if not improving Activity Restrictions/Additional Instructions: You have significant soft tissue swelling and bruising behind the left shoulder and right pelvis. This should progressively improve. Ice to both areas as much as possible at least 20 to 30 minutes 5 times a day the next 3 days. Follow-up with your doctor if not improving or return to the emergency department. Tylenol for pain. If you develop a severe headache return for evaluation. You had no head injury that we could see today we did not CAT scan your head. Disposition Disposition: Home, Self Care
[2020-11-30 16:13] VITALS: BP 145/84; PULSE 64; RESP 20; O2SAT 98
[2020-11-30 17:19] VITALS: BP 152/81; PULSE 64; RESP 18; O2SAT 99
--- NOTE | 2020-11-30 17:19 | ED.RN ---
Chart remains up for re-eval. No new orders at this time.
[2020-11-30 18:24] VITALS: BP 161/88; PULSE 68; RESP 18; O2SAT 99
== END 2020-11-30 19:10 | disposition home or self-care (01) ==
PROVIDERS: Emergency Provider Emergency Medicine; PCP Family Medicine
DX: S40.012A Contusion of left shoulder, initial encounter (principal); S20.229A Contusion of unspecified back wall of thorax, initial encounter; S70.211A Abrasion, right hip, initial encounter; W10.9XXA Fall (on) (from) unspecified stairs and steps, initial encounter; Y93.9 Activity, unspecified; Y92.008 Other place in unspecified non-institutional (private) residence as the place of occurrence of the external cause; Y99.9 Unspecified external cause status; I48.0 Paroxysmal atrial fibrillation; I10 Essential (primary) hypertension; E78.5 Hyperlipidemia, unspecified; F32.9 Major depressive disorder, single episode, unspecified; Z79.01 Long term (current) use of anticoagulants; Z79.899 Other long term (current) drug therapy
CPT/HCPCS: 72170; 73030; 99284

== ENCOUNTER → 2023-07-18 | Outpatient (CLI) | payer MEDICARE, OTHER, SELFPAY ==
--- NOTE | 2023-07-18 10:39 | ECHOCS_ITS ---
Reason For Study: Afib Procedure This was a 2D Doppler, Color Flow transthoracic echocardiogram. The study was technically difficult. Contrast injection was performed. Exam performed in department. Left Ventricle Normal LV size. Left ventricular systolic function is normal. The estimated ejection fraction is 55 %. No regional wall motion abnormalities noted. Right Ventricle Normal RV size. Normal systolic function. Atria The left atrium is mildly enlarged. The right atrium is mildly enlarged. Mitral Valve Normal mitral valve. Tricuspid Valve Normal tricuspid valve. Mild tricuspid valve insufficiency. Pulmonary artery systolic pressure is 24 mmHg. Aortic Valve Trisinus/trileaflet aortic valve. Pulmonic Valve The pulmonic valve is not well visualized. Great Vessels Normal aortic root. The pulmonary artery is normal size. Normal inferior vena cava. Pericardium/Pleural No pericardial effusion. Medication 20 gauge I.V. with prn adaptor inserted into right arm. Diluted definity 3ml given slow IV push to enhance endocardial definition. MMode/2D Measurements & Calculations LVIDd: 4.2 cm IVSd: 1.1 cm Ao root diam: 3.0 cm LVIDs: 2.5 cm LVPWd: 1.0 cm LA dimension: 4.7 cm RVDd: 4.3 cm FS: 40.6 % LAV(MOD-bp): 70.4 ml LA A4 area: 21.9 cm2 RA A4 area: 22.3 cm2 LAV(MOD-bp) Indexed: 33.3 ml/m2 LAV(MOD-sp2): 81.0 ml LAV(MOD-sp4): 60.7 ml TAPSE: 2.0 cm Doppler Measurements & Calculations MV E max christie: 120.7 cm/sec MV V2 max: 120.9 cm/sec Ao V2 max: 92.8 cm/sec MV max P.9 mmHg Ao max P.5 mmHg MV V2 mean: 68.4 cm/sec Ao V2 mean: 67.6 cm/sec MV mean P.3 mmHg Ao mean P.1 mmHg MV V2 VTI: 16.5 cm Ao V2 VTI: 17.5 cm LV V1 max: 71.3 cm/sec PA V2 max: 73.3 cm/sec TR max christie: 230.8 cm/sec LV V1 max P.0 mmHg TR max P.3 mmHg ECHO/Echo Complete W/ Contrast Interpretation Summary Normal LV size. Left ventricular systolic function is normal. The estimated ejection fraction is 55 %. Pulmonary artery systolic pressure is 24 mmHg. Contrast injection was performed. Ordering Physician: Jewel Cervantes Referring Physician: Jewel Cervantes Performed By: Shailesh Wynn RCS
--- OUTSIDE RECORDS SUMMARY | 2023-07-18 20:24 | XMS RPT_ITS | CCD ---
Author Name Unknown Address [address] [place] [address] Organization [facility] Care Team Providers Care Scanning Manager Name Role Phone Morteza Irving MD Primary Care Provider [phone] MORTEZA IRVING Attending Unavailable MORTEZA IRVING Primary Care Unavailable MORTEZA IRVING Attending Unavailable MORTEZA IRVING Primary Care Unavailable MORTEZA IRVING Referring Unavailable MORTEZA IRVING Primary Care Unavailable Medications Current Medications Medication Drug Class(es) Dates Sig (Normalized) Sig (Original) predniSONE 20 mg oral tablet (2 sources) Start: 12-19-2021 End: 12-24-2021 take 2 tablets by mouth once daily predniSONE (DELTASONE) 20 mg tablet Indications: Acute right-sided low back pain without sciatica Take 2 tablets by mouth once daily for 5 days. 10 tablet 0 12/19/2021 12/24/2021 Active Completed/Discontinued Medications Medication Drug Class(es) Dates Sig (Normalized) Sig (Original) apixaban 5 mg oral tablet (8 sources) Factor Xa Inhibitor Start: 06-23-2019 take 1 tablet by mouth twice daily ELIQUIS 5 mg tab(s) Take 5 mg by mouth twice daily. 0 06/23/2019 Active Problems Active Problems Problem Classification Problem Date Documented Da te Episodic/Chronic Abdominal pain (1 source) Flank pain; Translations: [Unspecified abdominal pain] Episodic Cardiac dysrhythmias (12 sources) Chronic atrial fibrillation; Translations: [Chronic atrial fibrillation, unspecified] Onset: 07-07-2020 Chronic Disorders of lipid metabolism (13 sources) Mixed hyperlipidemia; Translations: [Mixed hyperlipidemia] Onset: 07-07-2020 Chronic Immunizations and screening for infectious disease (1 source) Vaccination needed; Translations: [Encounter for immunization] Episodic Mood disorders (20 sources) Depressive disorder; Translations: [Depression, unspecified depression type] Onset: 04-27-2016 Chronic Other circulatory disease (1 source) Elevated blood-pressure reading without diagnosis of hypertension; Translations: [Elevated blood-pressure reading, without diagnosis of hypertension] Episodic Other connective tissue disease (1 source) Thickening of tendon sheath; Translations: [Other specified disorders of synovium and tendon, unspecified site] Episodic Other lower respiratory disease (1 source) Rib pain; Translations: [Pleurodynia] Episodic Spondylosis; intervertebral disc disorders; other back problems (1 source) Acute low back pain; Translations: [Acute right-sided low back pain without sciatica] Episodic Unclassified (1 source) Chronic atrial fibrillation, unspecified; Translations: [Chronic atrial fibrillation (HCC)] Onset: 07-07-2020 Past or Other Problems Problem Classification Problem Date Documented Da te Episodic/Chronic Other connective tissue disease (8 sources) Osteophyte of bone; Translations: [Other shoulder lesions, unspecified shoulder] Onset: 03-27-2016 03-27-2016 Episodic Other connective tissue disease (8 sources) Impingement syndrome of left shoulder region; Translations: [Impingement syndrome of left shoulder] Onset: 06-20-2016 06-20-2016 Episodic Other non-traumatic joint disorders (8 sources) Chronic pain of left upper limb; Translations: [Pain in left shoulder] Onset: 06-20-2016 06-20-2016 Episodic Results Test Name Value Interpretation Reference Range Facil ity Vital Signs Date Time Vital Sign Value Performing Clinician Laurie pepper 10-02-2022 14:35-0400 Body weight 94.53 kg Morteza Irving MD Work Phone: [facility] 10-02-2022 14:35-0400 Diastolic blood pressure 82 mm[Hg] Morteza Irving MD Work Phone: [facility] 10-02-2022 14:35-0400 Heart rate 80 /min Morteza Irving MD Work Phone: [facility] 10-02-2022 14:35-0400 Respiratory rate 16 /min Morteza Irving MD Work Phone: [facility] 10-02-2022 14:35-0400 Systolic blood pressure 126 mm[Hg] Morteza Irving MD Work Phone: [facility] 04-03-2022 15:05-0500 Body weight 92.81 kg Morteza Irving MD Work Phone: [facility] 04-03-2022 15:05-0500 Diastolic blood pressure 80 mm[Hg] Morteza Irving MD Work Phone: [facility] 04-03-2022 15:05-0500 Heart rate 72 /min Morteza Irving MD Work Phone: [facility] 04-03-2022 15:05-0500 Respiratory rate 16 /min Morteza Irving MD Work Phone: [facility] 04-03-2022 15:05-0500 Systolic blood pressure 120 mm[Hg] Morteza Irving MD Work Phone: [facility] 12-19-2021 13:53-0400 Body temperature 98.6 [degF] Errol Miguel BUTTER FAT TESTER.INFORMATION SYSTEMS OPERATOR Work Phone: [facility] 12-19-2021 13:53-0400 Body weight 92.08 kg Errol Miguel BUTTER FAT TESTER.INFORMATION SYSTEMS OPERATOR Work Phone: [facility] 12-19-2021 13:53-0400 Diastolic blood pressure 82 mm[Hg] Errol Miguel BUTTER FAT TESTER.INFORMATION SYSTEMS OPERATOR Work Phone: [facility] 12-19-2021 13:53-0400 Heart rate 72 /min Errol Miguel BUTTER FAT TESTER.INFORMATION SYSTEMS OPERATOR Work Phone: [facility] 12-19-2021 13:53-0400 Respiratory rate 16 /min Errol Miguel BUTTER FAT TESTER.INFORMATION SYSTEMS OPERATOR Work Phone: [facility] 12-19-2021 13:53-0400 SaO2% (BldA) [Mass fraction] 98 % Errol Miguel BUTTER FAT TESTER.INFORMATION SYSTEMS OPERATOR Work Phone: [facility] 12-19-2021 13:53-0400 Systolic blood pressure 148 mm[Hg] Errol Miguel BUTTER FAT TESTER.INFORMATION SYSTEMS OPERATOR Work Phone: [facility] 09-29-2021 15:15-0400 Diastolic blood pressure 80 mm[Hg] Morteza Irving MD Work Phone: [facility] 09-29-2021 15:15-0400 Systolic blood pressure 142 mm[Hg] Morteza Irving MD Work Phone: [facility] 09-29-2021 15:13-0400 Body weight 91.81 kg oMrteza Irving MD Work Phone: [facility] 09-29-2021 15:13-0400 Heart rate 80 /min Morteza Irving MD Work Phone: [facility] 09-29-2021 15:13-0400 Respiratory rate 16 /min Morteza Irving MD Work Phone: [facility] Encounters Encounter Date Encounter Type Care Provider Facility Start: 04-05-2023 End: 04-05-2023 ambulatory MORTEZA IRVING Facility:[facility] Start: 04-04-2023 End: 04-05-2023 ambulatory MORTEZA IRVING Facility:[facility] Start: 10-02-2022 End: 10-02-2022 ambulatory MORTEZA IRVING Facility:[facility] Start: 10-02-2022 End: 10-02-2022 Patient encounter procedure Morteza Irving MD Work Phone: [facility] Procedures Date Procedure Procedure Detail Performing Clinician Start: 04-03-2022 PFIZER-BIONTTxVia COVI D-19 BIVALENT BOOSTER VACCINE, AGE 12+ YR Morteza Irving MD Work Phone: Start: 02-18-2022 INFLUENZA SEASONAL QUADRIVALENT HIGH DOSE AGE 65+ Jo Dasilva MD Work Phone: Start: 12-19-2021 Radex ribs uni w/posteroant ch minimum 3 views Errol Rivera BUTTER FAT TESTER.INFORMATION SYSTEMS OPERATOR Work Phone: Start: 12-19-2021 Radex spine lumbosac ral 2/3 views Errol Rivera BUTTER FAT TESTER.INFORMATION SYSTEMS OPERATOR Work Phone: Start: 12-19-2021 Urnls dip stick/tabl et rgnt auto w/o microscopy Naheed Loyd BUTTER FAT TESTER.INFORMATION SYSTEMS OPERATOR Work Phone: Start: 04-06-2016 Colonoscopy Moretza lora MD Work Phone: Plan of Treatment Date Care Activity Detail Author Start: 03-29-2027 LIPID SCREEN LIPID SCREEN [facility] Start: 04-06-2026 Colonoscopy COLONOSCOPY [facility] Start: 04-06-2026 COLORECTAL CANCER SCREENING COLORECTAL CANCER SCREENING [facility] Start: 12-21-2025 LIPID SCREEN LIPID SCREEN [facility] Start: 03-29-2025 DIABETES SCREEN DIABETES SCREEN [facility] Start: 12-22-2023 DIABETES SCREEN DIABETES SCREEN [facility] Start: 04-04-2023 End: 06-04-2023 CBC panel - Blood by Automated count CBC Lab Routine Chronic atrial fibrillation (HCC) Expected: 04/04/2023 (Approximate), Expires: 06/04/2023 [facility] Work Phone: Immunizations Immunization Date Immunization Notes Care Provider [facility] 04-03-2022 COVID-19 booster vaccine, age 12+ yr, bivalent (PFIZER-BIONTECH) Morteza Irving MD Work Phone: [facility] 02-18-2022 influenza, high-dose , quadrivalent vaccine (FLUZONE HIGH DOSE QUADRIVALENT) Immunization Balwinder Work Phone: [facility] 03-27-2021 COVID-19 vaccine, fu ll dose (MODERNA) Morteza Irving MD Work Phone: [facility] 02-25-2021 zoster vaccine recombinant Morteza Irving MD Work Phone: [facility] 02-03-2021 influenza, high-dose , quadrivalent vaccine (FLUZONE HIGH DOSE QUADRIVALENT) Morteza Irving MD Work Phone: [facility] 12-31-2020 zoster vaccine recombinant Morteza Irving MD Work Phone: [facility] 02-02-2020 influenza, high-dose , quadrivalent vaccine (FLUZONE HIGH DOSE QUADRIVALENT) Morteza Irving MD Work Phone: [facility] 02-24-2019 influenza, high dose seasonal, preservative-free Morteza Irving MD Work Phone: [facility] 03-05-2018 pneumococcal polysaccharide vaccine, 23 valent Morteza Irving MD Work Phone: [facility] 02-26-2018 influenza, injectabl e, quadrivalent, contains preservative Morteza Irving MD Work Phone: [facility] 03-05-2017 zoster vaccine, live Morteza larios MD Work Phone: [facility] 10-19-2016 pneumococcal conjuga te vaccine, 13 valent Morteza Irving MD Work Phone: [facility] 03-02-2016 influenza, seasonal, injectable Morteza Irving MD Work Phone: [facility] 10-19-2012 tetanus toxoid, redu josef diphtheria toxoid, and acellular pertussis vaccine, adsorbed Morteza Irving MD Work Phone: [facility] Payers Date Payer Category Payer Medicare [id number] 2019 Private Health Insurance [employer] A ETNA MEDICARE SUPPLEMENT [id number] 2019-Present [phone] [address] [address] [place] [address] Indemnity [id number] 2019 Private Health Insurance [employer] A ETNA MEDICARE SUPPLEMENT [id number] 2019-Present [phone] [address] [address] [place] [address] Indemnity [id number] 2016 Medicare MEDICARE MEDICAR E A AND B [id number] 2016-Present [phone] [address] [address] [place] [address] Medicare [id number] 2016 Medicare MEDICARE MEDICAR E A AND B [id number] 2016-Present [phone] [place] [address] Medicare [id number] 2016 Medicare [id number] Social History Date Type Detail Facility Start: 09-03-2017 End: 04-03-2022 Tobacco smoking status NHIS Never smoked tobacco [facility] Start: 09-29-2021 End: 10-02-2022 Alcohol intake Current drinker of alcohol (finding) [facility] Start: 12-27-2019 End: 10-01-2022 History SDOH Alcohol Frequency 2 [facility] Start: 12-27-2019 End: 10-01-2022 History SDOH Alcohol Std Drinks 1 [facility] Start: 12-27-2019 End: 10-01-2022 History SDOH Social Connections Phone 3 [facility] Start: 12-27-2019 End: 10-01-2022 History SDOH Social Connections Living 5 [facility] Start: 12-27-2019 End: 10-01-2022 History SDOH Physical Activity DPW 6 [facility] Start: 12-27-2019 Education 18 [facility] Start: 1950 Sex Assigned At Male [facility] Start: 09-19-2021 End: 04-03-2022 Exposure to SARS-CoV-2 (event) Not sure [facility] Start: 09-03-2017 End: 04-03-2022 Tobacco use and exposure Smokeless tobacco non-user [facility] Start: 10-01-2022 History SDOH Alcohol Std Drinks 98 [facility] Clinical Notes 04-06-2016 to 04-05-2023 Morteza Irving MD - 10/02/2022 2:40 PM EDTMdaria Irving MD - 04/03/2022 3:20 PM ESTTelephone Encounter - Kasey Hoover RN - 03/22/2022 4:25 PM EDT Note Date & Type Note Facility 04-05-2023 Note HNO ID: [id number] Author: Morteza Irving MD Service: ? Author Type: Physician Type: Progress Notes Filed: 04/05/2023 3:28 PM Note Text: Chief Complaint Patient presents with: 6 Month Exam HPI Davidson Bro is a 72 year old male who presents here today for 6 month follow up. No bowel, GI, or urinary issues. Does not get up at night to urinate. A-fib: Taking Lopressor 25 mg BID and Diltiazem 120 mg daily. Does not check BP at home. Taking Eliquis 5 mg BID. Follows with [facility] yearly. He is unable to tell when he is in A-fib. He does complain of mid chest pain, tightness off and on. He states it occurs randomly at rest or with exertion, lasts about 10-15 minutes. He denies any SOB or dizziness. Mildly sick to his stomach. He does get dizziness/lightheaded at times, typically in the morning when he gets out of bed or if he stands up too quick. Some days it can last all day. No balance issues. Does feel a little nauseated when it happens. Tries to watch diet and exercise with calisthenics and walking. He is eating a lot of beans, vegetables, chicken. Denies much fruit other than occ apple. No much red meat. He does stretches in the morning and walks. Decreased appetite for the last 4-5 months. Nausea in the mornings. Admits he drinks a lot of alcohol, about 2 bottles of wine per night and some beer. No liquor. He was reading up and concerned about Ascites. States he hasn't urinated as much as he thinks he should with his fluid intake and his abdomen is swollen and squishy. He was concerned about his BUN being low. He has nausea every morning. He has not drank any alcohol since Sunday. Is doing well off the Alcohol, no side effects or problems. Drinks a lot of fluids during the day, a big coffee in the morning and water through out the day. Denies any weight changes. MASOOD/Depression: Stable with Prozac 40 mg daily. Denies any side effects or problems with the prozac. He lives alone, retired, boredom. He does get out of the house a few times a week, [facility]. Past medical history, appointments, medications, allergies reviewed. Previous Medical History PAST MEDICAL HISTORY Diagnosis Date Depression Previous Surgical History PAST SURGICAL HISTORY Procedure Laterality Date COLONOSCOPY FLX DX W/COLLJ SPEC WHEN PFRMD 04/06/16 Colonoscopy ESOPHAGOGASTRODUODENOSCOPY TRANSORAL DIAGNOSTIC 04/06/16 EGD Family History No family history on file. Patient Allergies ALLERGIES No Known Allergies Current Medications Current Outpatient Medications on File Prior to Visit Medication Sig FLUoxetine (PROZAC) 40 mg capsule TAKE 1 CAPSULE BY MOUTH DAILY dilTIAZem CR (TIAZAC, TAZTIA XT) 120 mg 24 hr capsule Take 120 mg by mouth once daily. ELIQUIS 5 mg tab(s) Take 5 mg by mouth twice daily. metoprolol tartrate, short acting, (LOPRESSOR) 25 mg tablet TWICE A DAY multivitamin tablet Take 1 tablet by mouth once daily. No current facility-administered medications on file prior to visit. Social History Social History Tobacco Use Smoking status: Never Smokeless tobacco: Never Vaping Use Vaping Use: Never used Substance Use Topics Alcohol use: Yes Drug use: No EXAM: BP 124/78 Pulse 72 Resp 16 Wt 94.1 kg (207 lb 6.4 oz) BMI 30.19 kg/m? General Appearance: Well appearing, alert, in no acute distress, well-hydrated, well nourished. and Overweight. Lungs: Lungs clear to auscultation. No wheezing, rhonchi, rales.. Heart: RRR without murmur, gallop, or rubs. No ectopy. Abdomen: Normal abdominal exam, Abdomen soft, non-tender. Bowel sounds normal. No masses, organomegaly. Health Maintenance List RSV Vaccine(1 - 1-dose 60+ series) Never done DTaP,Tdap,Td Vaccine(2 - Td or Tdap) due on 10/19/2022 Influenza Vaccine(1) due on 01/19/2023 Covid-19 Vaccine( - 2022- season) due on 01/19/2023 Diabetes Screening due on 03/29/2025 Colorectal Cancer Screening due on 04/06/2026 Lipid Screening due on 03/29/2027 Advance Directive Discussion Completed Hepatitis C Screening Completed Shingrix Vaccine Completed Pneumococcal Vaccine: 65+ Completed Data reviewed Appointment on 04/04/2023 Component Date Value Protein, Total 04/04/2023 7.0 Albumin 04/04/2023 4.5 Calcium, Total 04/04/2023 9.3 Bilirubin, Total 04/04/2023 0.4 Alkaline Phosphatase 04/04/2023 95 AST 04/04/2023 31 ALT 04/04/2023 29 Glucose 04/04/2023 96 BUN 04/04/2023 8 (L) Creatinine 04/04/2023 0.81 Sodium 04/04/2023 138 Potassium 04/04/2023 4.2 Chloride 04/04/2023 102 CO2 04/04/2023 25 Anion Gap 04/04/2023 11 Estimated Glomerular Dewey* 04/04/2023 94 Cholesterol, Total 04/04/2023 182 Triglyceride 04/04/2023 107 HDL Cholesterol 04/04/2023 66 Non HDL Cholesterol 04/04/2023 116 Fasting Time 04/04/2023 14 VLDL Cholesterol 04/04/2023 21 TC:HDL Ratio 04/04/2023 2.76 LDL Cholesterol 04/04/2023 95 LDL:HDL Ratio 04/04/2023 1.4 (more content not included)... [facility] 10-02-2022 Note HNO ID: [id number] Author: Morteza Irving MD Service: ? Author Type: Physician Type: Progress Notes Filed: 10/02/2022 3:08 PM Note Text: Chief Complaint Patient presents with: F/U 6 Month HPI Davidson Bro is a 72 year old male who presents here today for 6 month follow up. No bowel, Gi, or urinary issues. HTN/Afib: Denies checking BP at home or having symptoms of chest pain or sob. Occasional dizziness, but doesn't last long. Follows with [facility], follows with them annually. Taking Lopressor 25 mg BID and Diltiazem 120 mg daily. Pt taking Eliquis 5 mg bid. Watches diet,lots of vegetables; exercises daily; walks and does calisthenics Depression/MASOOD: Notes that some days are better then other. Best friend with Parkinsons, lost a sister over the summer. Feels medication does help some. Stable with Prozac 40 mg daily. HM - Declines having Adv Dir/Living will. Past medical history, appointments, medications, allergies reviewed. Previous Medical History PAST MEDICAL HISTORY Diagnosis Date Depression Previous Surgical History PAST SURGICAL HISTORY Procedure Laterality Date COLONOSCOPY FLX DX W/COLLJ SPEC WHEN PFRMD 04/06/16 Colonoscopy ESOPHAGOGASTRODUODENOSCOPY TRANSORAL DIAGNOSTIC 04/06/16 EGD Family History No family history on file. Patient Allergies ALLERGIES No Known Allergies Current Medications Current Outpatient Medications on File Prior to Visit Medication Sig FLUoxetine (PROZAC) 40 mg capsule Take 1 capsule by mouth once daily. dilTIAZem CR (TIAZAC, TAZTIA XT) 120 mg 24 hr capsule Take 120 mg by mouth once daily. ELIQUIS 5 mg tab(s) Take 5 mg by mouth twice daily. metoprolol tartrate, short acting, (LOPRESSOR) 25 mg tablet TWICE A DAY multivitamin tablet Take 1 tablet by mouth once daily. No current facility-administered medications on file prior to visit. Social History Social History Tobacco Use Smoking status: Never Smokeless tobacco: Never Vaping Use Vaping Use: Never used Substance Use Topics Alcohol use: Yes Drug use: No EXAM: BP 126/82 (BP Site: Right Arm, BP Position: Sitting, BP Cuff Size: Regular Adult) Pulse 80 Resp 16 Wt 94.5 kg (208 lb 6.4 oz) BMI 30.33 kg/m? General Appearance: Well appearing, alert, in no acute distress, well-hydrated, well nourished.. Lungs: Lungs clear to auscultation. No wheezing, rhonchi, rales.. Heart: RRR without murmur, gallop, or rubs. No ectopy. Health Maintenance List ADVANCE DIRECTIVE DISCUSSION due on 05/21/2022 DTAP,TDAP,TD(2 - Td or Tdap) due on 10/19/2022 DIABETES SCREEN due on 03/29/2025 COLORECTAL CANCER SCREENING due on 04/06/2026 LIPID SCREEN due on 03/29/2027 INFLUENZA Completed HEPATITIS C SCREENING Completed SHINGRIX VACCINE Completed COVID-19 VACCINE Completed PNEUMOCOCCAL: 65+ Completed Data reviewed None ASSESSMENT/PLAN: 1. Major depressive disorder, recurrent, in full remission (HCC) - ICD9: 296.36, ICD10: F33.42 (primary diagnosis) Stable Continue current medications. 2. Chronic atrial fibrillation (HCC) - ICD9: 427.31, ICD10: I48.20 Stable Follow with Cardiology - COMP METABOLIC PANEL - CBC 3. Mixed hyperlipidemia - ICD9: 272.2, ICD10: E78.2 - COMP METABOLIC PANEL - LIPID PANEL BASIC 4. Depression, unspecified depression type - ICD9: 311, ICD10: F32.A Continue current medications. Follow up in 6 months with labs prior Medical Decision Making: Problems: Moderate: 2+ stable chronic illnesses Data: Unique test(s) ordered: 3+ Risk: Moderate: Drug management Medical Decision Making Level: 4 - Moderate Morteza Irving MD [facility] 10-02-2022 History of Presen t illness Narrative Chief Complaint Patient presents with: F/U 6 Month HPI Davidson Bro is a 72 year old male who presents here today for 6 month follow up. No bowel, Gi, or urinary issues. HTN/Afib: Denies checking BP at home or having symptoms of chest pain or sob. Occasional dizziness, but doesn't last long. Follows with [facility], follows with them annually. Taking Lopressor 25 mg BID and Diltiazem 120 mg daily. Pt taking Eliquis 5 mg bid. Watches diet,lots of vegetables; exercises daily; walks and does calisthenics Depression/MASOOD: Notes that some days are better then other. Best friend with Parkinsons, lost a sister over the summer. Feels medication does help some. Stable with Prozac 40 mg daily. HM - Declines having Adv Dir/Living will. Past medical history, appointments, medications, allergies reviewed. Previous Medical History PAST MEDICAL HISTORY Diagnosis Date Depression Previous Surgical History PAST SURGICAL HISTORY Procedure Laterality Date COLONOSCOPY FLX DX W/COLLJ SPEC WHEN PFRMD 04/06/16 Colonoscopy ESOPHAGOGASTRODUODENOSCOPY TRANSORAL DIAGNOSTIC 04/06/16 EGD Family History No family history on file. Patient Allergies ALLERGIES No Known Allergies Current Medications Current Outpatient Medications on File Prior to Visit Medication Sig FLUoxetine (PROZAC) 40 mg capsule Take 1 capsule by mouth once daily. dilTIAZem CR (TIAZAC, TAZTIA XT) 120 mg 24 hr capsule Take 120 mg by mouth once daily. ELIQUIS 5 mg tab(s) Take 5 mg by mouth twice daily. metoprolol tartrate, short acting, (LOPRESSOR) 25 mg tablet TWICE A DAY multivitamin tablet Take 1 tablet by mouth once daily. No current facility-administered medications on file prior to visit. Social History Social History Tobacco Use Smoking status: Never Smokeless tobacco: Never Vaping Use Vaping Use: Never used Substance Use Topics Alcohol use: Yes Drug use: No EXAM: BP 126/82 (BP Site: Right Arm, BP Position: Sitting, BP Cuff Size: Regular Adult) Pulse 80 Resp 16 Wt 94.5 kg (208 lb 6.4 oz) BMI 30.33 kg/m General Appearance: Well appearing, alert, in no acute distress, well-hydrated, well nourished.. Lungs: Lungs clear to auscultation. No wheezing, rhonchi, rales.. Heart: RRR without murmur, gallop, or rubs. No ectopy. Health Maintenance List ADVANCE DIRECTIVE DISCUSSION due on 05/21/2022 DTAP,TDAP,TD(2 - Td or Tdap) due on 10/19/2022 DIABETES SCREEN due on 03/29/2025 COLORECTAL CANCER SCREENING due on 04/06/2026 LIPID SCREEN due on 03/29/2027 INFLUENZA Completed HEPATITIS C SCREENING Completed SHINGRIX VACCINE Completed COVID-19 VACCINE Completed PNEUMOCOCCAL: 65+ Completed Data reviewed None ASSESSMENT/PLAN: 1. Major depressive disorder, recurrent, in full remission (HCC) - ICD9: 296.36, ICD10: F33.42 (primary diagnosis) Stable Continue current medications. 2. Chronic atrial fibrillation (HCC) - ICD9: 427.31, ICD10: I48.20 Stable Follow with Cardiology - COMP METABOLIC PANEL - CBC 3. Mixed hyperlipidemia - ICD9: 272.2, ICD10: E78.2 - COMP METABOLIC PANEL - LIPID PANEL BASIC 4. Depression, unspecified depression type - ICD9: 311, ICD10: F32.A Continue current medications. Follow up in 6 months with labs prior Medical Decision Making: Problems: Moderate: 2+ stable chronic illnesses Data: Unique test(s) ordered: 3+ Risk: Moderate: Drug management Medical Decision Making Level: 4 - Moderate Morteza Irving MD documented in this encounter [facility] 04-03-2022 History of Presen t illness Narrative Chief Complaint Patient presents with: 6 Month Exam HPI Davidson Bro is a 71 year old male who presents here today for 6 month follow up up. He is still raising his new cat. Would like to travel for the holidays but is worried about leaving the cat alone for 4 days. No bowel, GI, or urinary issues. MASOOD/Depression: Taking Prozac 40 mg daily. Tolerating well, no side effects. He feels he is doing better mentally, he is able to get out and walk daily. A-fib: Taking Eliquis 5 mg BID, diltiazem 120 mg daily and Lopressor 25 mg BID. No chest pains or SOB. He does get some light headedness occ with movement or it can be random. Usually only last about an hour. No nausea or vomiting with it. He is unsure what triggers the lightheadedness to come on. Denies ever passing out. Follows with Cardio at [facility] yearly. Lipid: Tries to watch diet, avoids sugars and eating more vegetables and beans. Moderate exercise every morning. Does fast walk for 1 to 1.5 miles. Also does push ups and other strength exercises. Once weather gets nice he will start riding his bike. Hand: has a lump to the palm of left hand that he noticed a year ago. He did have trigger finger treated with cortisone shot in past. No pain with the lump, does not seem to be getting bigger. Past medical history, appointments, medications, allergies reviewed. Previous Medical History PAST MEDICAL HISTORY Diagnosis Date Depression Previous Surgical History PAST SURGICAL HISTORY Procedure Laterality Date COLONOSCOPY FLX DX W/COLLJ SPEC WHEN PFRMD 04/06/16 Colonoscopy ESOPHAGOGASTRODUODENOSCOPY TRANSORAL DIAGNOSTIC 04/06/16 EGD Family History No family history on file. Patient Allergies ALLERGIES No Known Allergies Current Medications Current Outpatient Medications on File Prior to Visit Medication Sig FLUoxetine (PROZAC) 40 mg capsule Take 1 capsule by mouth once daily. dilTIAZem CR (TIAZAC, TAZTIA XT) 120 mg 24 hr capsule Take 120 mg by mouth once daily. ELIQUIS 5 mg tab(s) Take 5 mg by mouth twice daily. metoprolol tartrate, short acting, (LOPRESSOR) 25 mg tablet TWICE A DAY multivitamin tablet Take 1 tablet by mouth once daily. No current facility-administered medications on file prior to visit. Social History Social History Tobacco Use Smoking status: Never Smokeless tobacco: Never Vaping Use Vaping Use: Never used Substance Use Topics Alcohol use: Yes Drug use: No EXAM: BP 120/80 Pulse 72 Resp 16 Wt 92.8 kg (204 lb 9.6 oz) BMI 29.78 kg/m General Appearance: Well appearing, alert, in no acute distress, well-hydrated, well nourished.. Lungs: Lungs clear to auscultation. No wheezing, rhonchi, rales.. Heart: RRR without murmur, gallop, or rubs. No ectopy. Hand: left; thickening of tendon to palm of hand ring finger tendon, no pain Health Maintenance List COVID-19 VACCINE(5 - Booster for Moderna series) due on 02/23/2022 DTAP,TDAP,TD(2 - Td or Tdap) due on 10/19/2022 DIABETES SCREEN due on 12/22/2023 LIPID SCREEN due on 12/21/2025 COLORECTAL CANCER SCREENING due on 04/06/2026 INFLUENZA Completed ADVANCE DIRECTIVE DISCUSSION Completed HEPATITIS C SCREENING Completed SHINGRIX VACCINE Completed PNEUMOCOCCAL: 65+ Completed Data reviewed Appointment on 03/29/2022 Component Date Value Cholesterol, Total 03/29/2022 195 Triglyceride 03/29/2022 110 HDL Cholesterol 03/29/2022 71 Non HDL Cholesterol 03/29/2022 124 Fasting Time 03/29/2022 12 VLDL Cholesterol 03/29/2022 22 TC:HDL Ratio 03/29/2022 2.75 LDL Cholesterol 03/29/2022 102 (A) LDL:HDL Ratio 03/29/2022 1.44 Protein, Total 03/29/2022 6.7 Albumin 03/29/2022 4.4 Calcium, Total 03/29/2022 9.6 Bilirubin, Total 03/29/2022 0.4 Alkaline Phosphatase 03/29/2022 83 AST 03/29/2022 28 ALT 03/29/2022 26 Glucose 03/29/2022 93 BUN 03/29/2022 11 Creatinine 03/29/2022 0.80 Sodium 03/29/2022 133 (A) Potassium 03/29/2022 4.7 Chloride 03/29/2022 98 CO2 03/29/2022 25 Anion Gap 03/29/2022 10 Estimated Glomerular Dewey* 03/29/2022 95 WBC 03/29/2022 6.71 RBC 03/29/2022 4.32 Hemoglobin 03/29/2022 14.0 Hematocrit 03/29/2022 43.3 MCV 03/29/2022 100.2 (A) MCH 03/29/2022 32.4 MCHC 03/29/2022 32.3 RDW-CV 03/29/2022 12.3 Platelet Count 03/29/2022 208 MPV 03/29/2022 11.0 Neut% 03/29/2022 66.8 Abs Neut 03/29/2022 4.48 Lymph% 03/29/2022 19.1 Abs Lymph 03/29/2022 1.28 Sandoval% 03/29/2022 11.9 Abs Sandoval 03/29/2022 0.80 Eosin% 03/29/2022 1.5 Abs Eosin 03/29/2022 0.10 Baso% 03/29/2022 0.4 Abs Baso 03/29/2022 0.03 Immature Gran % 03/29/2022 0.3 Abs Immature Gran 03/29/2022 <0.03 NRBC 03/29/2022 0.0 Absolute nRBC 03/29/2022 <0.01 Diff Type 03/29/2022 Auto ASSESSMENT/PLAN: 1. Depression, unspecified depression type - ICD9: 311, ICD10: F32.A (primary diagnosis) Controlled Continue current medications. 2. Need for COVID-19 vaccine - ICD9: V04.89, ICD10: Z23 - [employer] COVID-19 BIVALENT BOOSTER VACCINE, AGE 12+ YR 3. Chronic atrial fibrillation (HCC) - ICD9: 427.31, ICD10: I48.20 Continue current medications. Continue with Cardio 4. Mixed hyperlipidemia - ICD9: 272.2, ICD10: E78.2 - good control - Continue current medication. - Encouraged following a low fat, low cholesterol diet. - Discussed the benefits of regular aerobic exercise and weight loss. 5. Tendon sheath thickening - ICD9: 727.89, ICD10: M67.80 Continue to monitor, no treatment Follow up in 6 months. Do labs once a year. I agree with the Chief Complaint, ROS, and Past Histories independently gathered by the clinical senior support engineer and the remaining scribed note accurately describes my personal service to the patient. Medical Decision Making: Problems: Moderate: 2+ stable chronic illnesses Data: Unique test result(s) reviewed: 2 Risk: Moderate: Drug management Medical Decision Making Level: 4 - Moderate Morteza Irving MD The documentation for this note was completed by Sonal Johnson Ma acting as scribe for Morteza Irving MD. April 03, 2022 3:05 PM. Sonal Johnson Ma documented in this encounter [facility] 03-22-2022 Miscellaneous Notes Pt called and is notified of providers message. Pt voices understanding. Kasey Hoover RN Labs ordered Morteza Irving MD Patient calling he has appt on 04/03/2022 and asking if he needs to complete lab work prior to appt? Last labs were done 12/2020. Pending orders if wanted, needs diagnosis. Please advise documented in this encounter [facility] 01-31-2022 Miscellaneous Notes The following approved medication requests have been transmitted electronically. Requested Prescriptions Pending Prescriptions Disp Refills FLUoxetine (PROZAC) 40 mg capsule 90 capsule 3 Sig: Take 1 capsule by mouth once daily. Brandan Mendoza APRN.MARIAA Last office visit: 09/29/21 F/u scheduled: 04/03/22 Sonal Johnson Ma Patient has been identified by name and date of : Yes Requested Prescriptions Pending Prescriptions Disp Refills FLUoxetine (PROZAC) 40 mg capsule 90 capsule 3 Sig: Take 1 capsule by mouth once daily. RX INSTRUCTIONS: patient completely out took last dose 01/30 Patient aware RX will be sent to pharmacy. No need to notify patient. Rosanna Evelin Pss documented in this encounter [facility] 12-21-2021 Miscellaneous Notes Pt notified of results via mychart. Sonal Johnson Ma Unable to reach patient. Mailbox full/Mailbox not set up/ Number incorrect. Please try again later. Brandy Farias No bacterial growth noted on urine culture. Follow-up with PCP for reevaluation. Jorje Jaramillo APRN.INFORMATION SYSTEMS OPERATOR documented in this encounter [facility] 12-19-2021 History of Presen t illness Narrative Images from the original note were not included. Subjective HPI HPI Davidson Bro is a 71 year old male who presents today for CC of fall 10 days ago, has been having left rib pain and right lower back pain. Has tried otc medication for relief. Symptoms are worsened by nothing. Denies cp/sob. .Patient presents with: Low Back Pain: right side, left upper region after fall x 10 days ago PAST MEDICAL HISTORY Diagnosis Date Depression PAST SURGICAL HISTORY Procedure Laterality Date COLONOSCOPY FLX DX W/COLLJ SPEC WHEN PFRMD 04/06/16 Colonoscopy ESOPHAGOGASTRODUODENOSCOPY TRANSORAL DIAGNOSTIC 04/06/16 EGD ALLERGIES Patient has no known allergies. MEDICATIONS FLUoxetine HCl (PROZAC) 40 mg capsule Take 1 capsule by mouth once daily. dilTIAZem CR (TIAZAC, TAZTIA XT) 120 mg 24 hr capsule Take 120 mg by mouth once daily. ELIQUIS 5 mg tab(s) Take 5 mg by mouth twice daily. metoprolol tartrate, short acting, (LOPRESSOR) 25 mg tablet TWICE A DAY multivitamin tablet Take 1 tablet by mouth once daily. No family history on file. Social History Tobacco Use Smoking status: Never Smoker Smokeless tobacco: Never Used Vaping Use Vaping Use: Never used Substance Use Topics Alcohol use: Yes Drug use: No ROS Objective Blood pressure 148/82, pulse 72, temperature 37 C (98.6 F), resp. rate 16, weight 92.1 kg (203 lb), SpO2 98 %. Physical Exam Constitutional: General: He is not in acute distress. Appearance: Normal appearance. He is not toxic-appearing or diaphoretic. HENT: Head: Normocephalic and atraumatic. Cardiovascular: Rate and Rhythm: Normal rate and regular rhythm. Pulses: Dorsalis pedis pulses are 2+ on the right side and 2+ on the left side. Posterior tibial pulses are 2+ on the right side and 2+ on the left side. Heart sounds: Normal heart sounds, S1 normal and S2 normal. Pulmonary: Effort: Pulmonary effort is normal. Breath sounds: Normal breath sounds. Abdominal: General: Bowel sounds are normal. Palpations: Abdomen is soft. Tenderness: There is no abdominal tenderness. Musculoskeletal: Lumbar back: Spasms present. Decreased range of motion. Negative right straight leg raise test and negative left straight leg raise test. Comments: Lumbar paraspinal muscles tender with palpation Neurological: Mental Status: He is alert and oriented to person, place, and time. Gait: Gait is intact. Gait normal. Deep Tendon Reflexes: Reflex Scores: Patellar reflexes are 1+ on the right side and 1+ on the left side. ASSESSMENT/PLAN: 1. Flank pain, acute - ICD9: 789.09, 338.19, ICD10: R10.9 (primary diagnosis) leuks on ua, will send for culture Call/treat as indicated - URINE CULTURE 2. Acute right-sided low back pain without sciatica - ICD9: 724.2, ICD10: M54.50 Suspect mustulosckeletal pain Ice/heat discussed Will order steroid F/u for continued/worsening s/s. - UA DIP, URINE (POC) - XR LUMBAR GENERAL 3V AP/LAT/L5-S1 Impression IMPRESSION: Lumbar spine degenerative changes as described above. Dictated by : ALTAF ROLDAN MD - PREDNISONE 20 MG TABLET 3. Rib pain on left side - ICD9: 786.50, ICD10: R07.81 Fracture noted on xray Discussed splinting Discussed taking deep breaths F/u for continued/worsening s/s. - XR RIBS/CHEST 3V AP RIB/OBLS/CXR LEFT Impression IMPRESSION: Acute essentially nondisplaced left posterior eighth rib fracture. Dictated by : RICARDO DIETRICH MD Agrees to plan Errol Rivera APRN.INFORMATION SYSTEMS OPERATOR documented in this encounter [facility] 09-29-2021 History of Presen t illness Narrative Chief Complaint Patient presents with: F/U 6 Month HPI Davidson Bro is a 71 year old male who presents here today for 6 month follow up. Here today for a 6 month follow up. Denies anything major going on in life. Does keep in contact with family members and visits friends in [place]. Has a friend of 40+ years, who was dx with Parkinson's. Since his last visit, he has declined unfortunately. Denies any falls since previous reported. Denies any bowel, gi, or urinary issues. Depression & Sleep: Taking Prozac 40 mg daily, seems to be doing well on this dosage. Occasionally has up and downs, but overall stable. Did adopt a cat which seems to help him. For the most part sleeping overall okay, denies taking anything for this. A-fib: Follows with Cardio at [facility], last OV 01/12/21. Taking Eliquis 5 mg BID and Lopressor 25 mg BID and Diltiazem 120 mg daily. No chest pain or sob. Reports one episode of dizziness recently where he got up from sitting and experienced dizziness that lingered for an hour or two, then resolved. Denied any abnormal heart rate at that time. Has an appt with Cardio later this summer. Lipid: Tries to watch diet, avoids sugars and eating more vegetables and beans. Moderate exercise every morning. Does fast walk for 1 to 1.5 miles. Also does push ups and other strength exercises. Once weather gets nice he will start riding his bike. Has noticed eye sight getting worse, especially with distance. Pt states that he will setup an appt to get his eyes checked. HM - No Adv Dir/Karely Will Past medical history, appointments, medications, allergies reviewed. Previous Medical History PAST MEDICAL HISTORY Diagnosis Date Depression Previous Surgical History PAST SURGICAL HISTORY Procedure Laterality Date COLONOSCOP W/ OR W/O BRSH SPEC 04/06/16 Colonoscopy EGD W/O OR W/BRUSH/WASH 04/06/16 EGD Family History No family history on file. Patient Allergies ALLERGIES No Known Allergies Current Medications Current Outpatient Medications on File Prior to Visit Medication Sig FLUoxetine HCl (PROZAC) 40 mg capsule Take 1 capsule by mouth once daily. dilTIAZem CR (TIAZAC, TAZTIA XT) 120 mg 24 hr capsule Take 120 mg by mouth once daily. ELIQUIS 5 mg tab(s) Take 5 mg by mouth twice daily. metoprolol tartrate, short acting, (LOPRESSOR) 25 mg tablet TWICE A DAY multivitamin tablet Take 1 tablet by mouth once daily. No current facility-administered medications on file prior to visit. Social History Social History Tobacco Use Smoking status: Never Smoker Smokeless tobacco: Never Used Vaping Use Vaping Use: Never used Substance Use Topics Alcohol use: Yes Drug use: No EXAM: BP 142/80 Pulse 80 Resp 16 Wt 91.8 kg (202 lb 6.4 oz) BMI 29.46 kg/m General Appearance: Well appearing, alert, in no acute distress, well-hydrated, well nourished.. Lungs: Lungs clear to auscultation. No wheezing, rhonchi, rales.. Heart: RRR without murmur, gallop, or rubs. No ectopy. Health Maintenance List ADVANCE DIRECTIVE DISCUSSION Never done DTAP,TDAP,TD(2 - Td or Tdap) due on 10/19/2022 DIABETES SCREEN due on 12/22/2023 LIPID SCREEN due on 12/21/2025 COLORECTAL CANCER SCREENING due on 04/06/2026 INFLUENZA Completed HEPATITIS C SCREENING Completed PNEUMOVAX AGE 65 AND OVER WITH 5YR LOOKBACK Completed SHINGRIX VACCINE Completed COVID-19 VACCINE Completed MENINGOCOCCAL CONJUGATE Aged Out Data reviewed None ASSESSMENT/PLAN: 1. Depression, unspecified depression type - ICD9: 311, ICD10: F32.A (primary diagnosis) - Stable 2. Mixed hyperlipidemia - ICD9: 272.2, ICD10: E78.2 - good control - Continue current medication. - Encouraged following a low fat, low cholesterol diet. - Discussed the benefits of regular aerobic exercise and weight loss. - COMP METABOLIC PANEL - LIPID PANEL BASIC 3. Chronic atrial fibrillation (HCC) - ICD9: 427.31, ICD10: I48.20 - Stable - COMP METABOLIC PANEL 4. Elevated BP without diagnosis of hypertension - ICD9: 796.2, ICD10: R03.0 - Encouraged dietary sodium restriction/DASH diet - Recommended regular aerobic exercise. - Recommend home blood pressure monitoring, to bring results in on next visit - Goal of BP <130/80 6 mo f/u with labs I agree with the Chief Complaint, ROS, and Past Histories independently gathered by the clinical senior support engineer and the remaining scribed note accurately describes my personal service to the patient. Medical Decision Making: Problems: Moderate: 2+ stable chronic illnesses Risk: Moderate: Drug management Medical Decision Making Level: 4 - Moderate Morteza Irving MD The documentation for this note was completed by Emilia Mcmillan Ma acting as scribe for Morteza Irving MD. September 29, 2021 3:26 PM. Emilia Mcmillan Ma documented in this encounter [facility] documented as of this encounter (statuses as of 09/29/2021) [facility] History of Past illness Narrative* Problem Noted Date Resolved Date Rectal bleeding 04/06/2016 04/06/2016 documented as of this encounter (statuses as of 12/19/2021) [address]17-2016 History of Past illness Narrative* Problem Noted Date Resolved Date Rectal bleeding 04/06/2016 04/06/2016 documented as of this encounter (statuses as of 12/21/2021) [address]-2016 History of Past illness Narrative* Problem Noted Date Resolved Date Rectal bleeding 04/06/2016 04/06/2016 documented as of this encounter (statuses as of 01/31/2022) [address]-2016 History of Past illness Narrative* Problem Noted Date Resolved Date Rectal bleeding 04/06/2016 04/06/2016 documented as of this encounter (statuses as of 02/18/2022) [address]-2016 History of Past illness Narrative* Problem Noted Date Resolved Date Rectal bleeding 04/06/2016 04/06/2016 documented as of this encounter (statuses as of 03/22/2022) [address]-2016 History of Past illness Narrative* Problem Noted Date Resolved Date Rectal bleeding 04/06/2016 04/06/2016 documented as of this encounter (statuses as of 04/04/2022) [facility] History of Past illness Narrative* Problem Noted Date Resolved Date Rectal bleeding 04/06/2016 04/06/2016 documented as of this encounter (statuses as of 10/03/2022) [facility] note* Diagnosis Depression, unspecified depression type- Primary Mixed hyperlipidemia Chronic atrial fibrillation (HCC) Atrial fibrillation Elevated BP without diagnosis of hypertension documented in this encounter [facility] note* Diagnosis Acute right-sided low back pain without sciatica- Primary Flank pain, acute Abdominal pain, unspecified site Rib pain on left side Chest pain, unspecified documented in this encounter [facility] note* Diagnosis Depression, unspecified depression type documented in this encounter [facility] note* Diagnosis Chronic atrial fibrillation (HCC)- Primary Atrial fibrillation Mixed hyperlipidemia documented in this encounter [facility] note* Diagnosis Depression, unspecified depression type- Primary Need for COVID-19 vaccine Chronic atrial fibrillation (HCC) Atrial fibrillation Mixed hyperlipidemia Tendon sheath thickening Other disorders of synovium, tendon, and bursa documented in this encounter [facility] note* Diagnosis Major depressive disorder, recurrent, in full remission (HCC)- Primary Major depressive disorder, recurrent episode, in full remission Chronic atrial fibrillation (HCC) Atrial fibrillation Mixed hyperlipidemia Depression, unspecified depression type documented in this encounter [facility] for referral (narrative)* Diagnostic Procedure Only (Urgent) - Closed Specialty Diagnoses / Procedures Referred By Contac t Referred To Contact XR IMAGING Diagnoses Acute right-sided low back pain without sciatica Procedures XR LUMBAR GENERAL 3V AP/LAT/L5-S1 RADEX SPINE LUMBOSACRAL 2/3 VIEWS Errol Rivera APRN.INFORMATION SYSTEMS OPERATOR [address] [place] [address] Xr Imaging Referral ID Status Reason Start Date Expiration Date V isits Requested Visits Authorized [id number] Closed Auto-Generate d Referral 12/19/2021 01/18/2023 1 1 * Diagnostic Procedure Only (Urgent) - Closed Specialty Diagnoses / Procedures Referred By Contac t Referred To Contact XR IMAGING Diagnoses Rib pain on left side Procedures XR RIBS/CHEST 3V AP RIB/OBLS/CXR LEFT RADEX RIBS UNI W/POSTEROANT CH MINIMUM 3 VIEWS Errol Rivera APRN.CNP [address] [place] [address] Xr Imaging Referral ID Status Reason Start Date Expiration Date V isits Requested Visits Authorized [id number] Closed Auto-Generate d Referral 12/19/2021 01/18/2023 1 1 [facility] Advance Directives No Advanced Directives Records FoundDocuments on File Type Date Recorded Patient Research Contracts Supervisor Expl anation Advance Directive(s) 04/06/2016 12:16 PM Documents on File Type Date Recorded Patient Research Contracts Supervisor Expl anation Advance Directive(s) 04/06/2016 12:16 PM Summary Purpose Family History No Family History Records Found Additional Source Comments Source Comments (unrecognize d section and content) In the event this informatio n is protected by the Federal Confidentiality of Alcohol and Drug Abuse Patient Records regulations: The Federal rules restrict any use of the information to criminally investigate or prosecute any alcohol or drug abuse patient.[facility] event this information is protected by the Federal Confidentiality of Alcohol and Drug Abuse Patient Records regulations: The Federal rules restrict any use of the information to criminally investigate or prosecute any alcohol or drug abuse patient.[facility] the event this information is protected by the Federal Confidentiality of Alcohol and Drug Abuse Patient Records regulations: The Federal rules restrict any use of the information to criminally investigate or prosecute any alcohol or drug abuse patient.[facility] the event this information is protected by the Federal Confidentiality of Alcohol and Drug Abuse Patient Records regulations: The Federal rules restrict any use of the information to criminally investigate or prosecute any alcohol or drug abuse patient.[facility] the event this information is protected by the Federal Confidentiality of Alcohol and Drug Abuse Patient Records regulations: The Federal rules restrict any use of the information to criminally investigate or prosecute any alcohol or drug abuse patient.[facility] the event this information is protected by the Federal Confidentiality of Alcohol and Drug Abuse Patient Records regulations: The Federal rules restrict any use of the information to criminally investigate or prosecute any alcohol or drug abuse patient.[facility] the event this information is protected by the Federal Confidentiality of Alcohol and Drug Abuse Patient Records regulations: The Federal rules restrict any use of the information to criminally investigate or prosecute any alcohol or drug abuse patient.[facility] the event this information is protected by the Federal Confidentiality of Alcohol and Drug Abuse Patient Records regulations: The Federal rules restrict any use of the information to criminally investigate or prosecute any alcohol or drug abuse patient.[facility] Reason for Visit (unrecogniz ed section and content) Reason Comments Low Back Pain right side, left upp er region after fall x 10 days ago Reason Comments Results Reason Onset Date Comments Refill Request 01/31/2022 Reason Comments Lab Orders Reason Comments 6 Month Exam Care Teams (unrecognized sec tion and content) Scanning Manager Relationship Specialty Start Date End Date Morteza Irving MD [address], [place] [phone] PCP - General Family Practice 03/16/16 Scanning Manager Relationship Specialty Start Date End Date Morteza Irving MD [address] [place] [address] PCP - General Family Practice 03/16/16 Scanning Manager Relationship Specialty Start Date End Date Morteza Irving MD [address] [place] [address] PCP - General Family Practice 03/16/16 Scanning Manager Relationship Specialty Start Date End Date Morteza Irving MD [address], [place] [phone] PCP - [facility] 03/16/16 Scanning Manager Relationship Specialty Start Date End Date Morteza Irving MD [address], [place] [phone] PCP - General [facility] 03/16/16 Scanning Manager Relationship Specialty Start Date End Date Morteza Irving MD [address], [place] [phone] PCP - [facility] 03/16/16 Scanning Manager Relationship Specialty Start Date End Date Morteza Irving MD [address] [place] [address] PCP - [facility] 03/16/16 (unrecognized sect ion and content) No Status Records Found INFORMATION SOURCE (unrecogn ized section and content) FOR RECORDS PERTAINING TO PATIENTS WHO ARE OR HAVE BEEN ENROLLED IN A CHEMICAL DEPENDENCY/SUBSTANCEABUSE PROGRAM, SOME INFORMATION MAY BE OMITTED. This clinical summary was aggregated from multiple sources. Caution should be exercised in using it in the provision of clinical care. This summary normalizes information from multiple sources, and as a consequence, information in this document may materially change the coding, format and clinical context of patient data. In addition, data may be omitted in some cases. CLINICAL DECISIONS SHOULD BE BASED ON THE PRIMARY CLINICAL RECORDS. [employer] [facility]. provides no warranty or guarantee of the accuracy or completeness of information in this document.
== END | disposition home or self-care (01) ==
LOC: CVS 10:37
PROVIDERS: PCP Family Medicine; Referring Provider Internal Medicine Cardiovascular Disease; Visit Provider Internal Medicine Cardiovascular Disease
DX: I48.0 Paroxysmal atrial fibrillation (principal)
CPT/HCPCS: 93225; 93226; 93306; Q9957; A4216; C8929

== ENCOUNTER → 2024-10-06 | Outpatient (CLI) | payer MEDICARE, OTHER, SELFPAY ==
--- NOTE | 2024-10-06 14:31 | STRESSREP ---
Stress Test Report Pharmacologic myocardial perfusion stress test. 74-year-old male with a history of chest pain Resting EKG demonstrates sinus rhythm with a rate of 77 bpm. Resting blood pressure is 118/70 mmHg. 0.4 mg of regadenoson was infused per usual protocol followed by rapid intravenous saline flush injection. Continuous EKG monitoring was performed. The maximum heart rate was 90 bpm which was 61% of max impacted heart rate the maximum workload was 1 metabolic equivalent. At rest there were no ST or T wave changes noted to suggest ischemia and at peak infusion nonspecific ST changes were noted which did not meet the criteria for ischemia. No clinical angina is noted. The final blood pressure was 124/72 mmHg. Myocardial perfusion protocol. 13.5 mCi of technetium 99m sestamibi was injected at rest. 0.4 mg of regadenoson was infused per usual protocol. At peak infusion 40.3 mCi of technetium 99m sestamibi was injected stress images were obtained stress and rest images were reconstructed and compared in the short axis vertical long and horizontal long axis. Gated images were also obtained. Perfusion SPECT analysis: Review of the stress images demonstrate normal uptake of tracer noted in all areas of the myocardium. The resting images similar demonstrated normal uptake of tracer noted in all areas of the myocardium. No areas of reversibility are noted to suggest ischemia and no previous infarct is noted. Gated SPECT analysis: The gated ejection fraction is 76%. Conclusion: Normal pharmacologic myocardial perfusion stress test. Preserved ejection fraction.
== END | disposition home or self-care (01) ==
LOC: CVS 06:32
PROVIDERS: PCP Family Medicine; Referring Provider Nurse Practitioner Gerontology; Visit Provider Nurse Practitioner Gerontology
DX: R07.9 Chest pain, unspecified (principal)
CPT/HCPCS: 78452; 93017; A9500; A4216; J2785